=== PATIENT | male | born 1935 | race Caucasian/White ===

== ENCOUNTER 2018-11-18 01:58 | Inpatient (IN) | payer MEDICARE ==
[2018-11-18] MEDS ORDERED: Ondansetron PF 4 MG/2 ML Vial ONE (02:01)
[2018-11-18 02:31] LABS: Hemoglobin 12.4 g/dL (14.0-18.0); Mean Corpuscular HGB CONC 32.6 g/dL (32.0-36.0); Mean Corpuscular Hemoglobin 32.5 pg (27.0-31.0); Mean Corpuscular Volume 99.5 fL (78.0-98.0); Mean Platelet Volume 7.9 fL (7.4-10.4); Platelet Count 209 thou/uL (130-400); RBC Distribution Width 12.6 % (11.5-14.5)
[2018-11-18 02:52] LABS: ALT (SGPT) 20 U/L (8-55); AST (SGOT) 20 U/L (5-34); Albumin 4.3 g/dL (3.4-4.8); Alkaline Phosphatase 98 U/L (40-150); Anion Gap 19 mmol/L (10-20); BUN (Urea Nitrogen) 32 mg/dL (8.4-25.7); Bilirubin, Total 0.3 mg/dL (0.2-1.2); CK (CPK) 66 U/L (30-200); Calc. Creatinine Clearance 0 mL/min (70-130); Calcium 9.1 mg/dL (7.8-10.44); Carbon Dioxide 20 mmol/L (23-31); Chloride 107 mmol/L (98-107); Estimated GFR-MDRD 46; Globulin 2.4 g/dL (2.4-3.5); Glucose 109 mg/dL (83-110); Lipase 20 U/L (8-78); Potassium 4.5 mmol/L (3.5-5.1); Protein, Total 6.7 g/dL (5.8-8.1); Sodium 141 mmol/L (136-145)
[2018-11-18 02:54] LABS: Band 7 % (5-11); Hypochromia SLIGHT = 6-15 cells (100X) (0-5/hpf); Lymphocytes 16 % (21-51); MDiff Complete? YES; Monocytes 1 % (0-10); Neutrophil 73 % (42-75); Platelet Morphology Comment Appears Adequate; Reactive Lymphocytes 3 % (0-10)
[2018-11-18] MEDS ORDERED: Piperacillin/Tazobactam 4.5 GM VIAL ONE (03:04)
[2018-11-18] MEDS ORDERED: Ondansetron PF 4 MG/2 ML Vial IVP PRN (06:39)
[2018-11-18] MEDS ORDERED: Ondansetron ODT 4 MG TAB PO PRN (06:39)
[2018-11-18] MEDS ORDERED: Acetaminophen 325 MG TAB PO PRN (06:39)
[2018-11-18 06:42] VITALS: BMI 24.3
[2018-11-18] MEDS: Sodium Chloride 0.9% 1,000 ML IV SCH ×3 (08:15→23:50)
--- NOTE | 2018-11-18 09:32 | RAD ---
FRONTAL VIEW CHEST: COMPARISON: No prior comparison. INDICATION: Short of breath. FINDINGS: There is enlargement of the cardiac silhouette and pulmonary vasculature with bilateral interstitial prominence. Right pleural fluid is present. There are osseous degenerative changes. IMPRESSION: 1. Findings which favor fluid overload. Superimposed pneumonia not excluded. 2. Right pleural effusion. 3. Recommend followup to resolution. POS: ANNAMARIE
[2018-11-18] MEDS: Piperacillin/Tazobactam 3.375 GM in Sodium Chloride 0.9% 100 ML IVPB SCH ×4 (09:58→22:30)
[2018-11-18] MEDS ORDERED: ISOVUE-370 76%-LOCM 1 ML ONE (11:21)
[2018-11-18] MEDS ORDERED: HYDROcodone/Acetaminophen 5/325 mg Tablet PO PRN (16:40)
[2018-11-18] MEDS: Vancomycin HCl 1 GM in Premix Bag 1 BAG IVPB SCH (17:31)
--- NOTE | 2018-11-18 18:56 | HP ---
CHIEF COMPLAINT: Shortness of breath and cough for the last 3 days. HISTORY OF PRESENT ILLNESS: This is an 83-year-old man with a history of hypertension, who presented to the ER with shortness of breath and cough on expectorant for the last few days, feeling weak with nausea and vomiting. In the ER, he was treated with sepsis protocol because of high lactate and blood pressure is low. He was given IV fluid and sepsis support initiated because of pneumonia. He was a very poor historian when examined him. History was not available at the time. MEDICATION: Not available at the time of interview. PAST MEDICAL HISTORY: Not available. History of hypertension. No diabetes. ALLERGIES: HE HAS AN ALLERGY TO AZITHROMYCIN. PERSONAL HISTORY: He quit smoking so many years ago. Denied alcohol or drug use. FAMILY HISTORY: Reviewed and not pertinent to current illness REVIEW OF SYSTEMS: HEENT: He has fever and malaise. NEUROLOGIC: No headache. No nausea. No vomiting. No blurred vision. RESPIRATORY: He has cough, expectorant. Short of breath on exertion. No hemoptysis. CARDIOVASCULAR: No chest pain. No short of breath. No palpitation. GI: Nausea and vomiting. No diarrhea. No hematemesis. No melena. MUSCULOSKELETAL: No joint pain. SKIN: No rash. Review of systems negative except in the history and physical. PHYSICAL EXAMINATION: GENERAL: He is an elderly man, in the bed, not in distress. VITAL SIGNS: Pulse 79, blood pressure 105/57, respirations 20, and temperature 99.3. HEENT: Head is atraumatic and normocephalic. Pupils round and reactive. Extraocular muscles are intact. Ears, nose, and throat normal. Tongue, mucosa moist. NECK: Supple. No JVD. No thyromegaly. No lymphadenopathy. Trachea midline. CHEST: Diminished breath sounds at bases. Crackles with a few expiratory wheezing and rhonchi. CVS: S1, S2 audible. No S3 or S4. ABDOMEN: Soft. Bowel sounds audible. No organomegaly. No guarding or rigidity. EXTREMITIES: No pedal edema. No cyanosis or clubbing. 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 No focal deficit. LABORATORY DATA: D-dimer high at 5.35. WBC 12.0, hemoglobin 12.4, hematocrit 37.8, and platelets 209. Sodium 141, potassium 4.5, chloride 107, bicarbonate 20, BUN 32, creatinine 1.46, and calcium 9.1. AST 20, ALT 20, and alkaline phosphatase 98. BNP 104.3. Albumin 4.3, 2.4. Lipase 20. Lactic acid 3.0. Second set of labs and chest x-ray shows pneumonia versus fluid overload. CAT scan pending. ASSESSMENT AND PLAN: 1. Sepsis with pneumonia. Continue sepsis protocol. Blood cultures x2. Oxygen nebulizer, IV Levaquin, vancomycin, and Zosyn for broad-spectrum coverage. 2. Elevated D-dimer with acute kidney injury. CTA chest showed Multiocal Pneumonia, NO PE closely. 3. Deep vein thrombosis prophylaxis with Lovenox. Job ID: [id number] [facility]
[2018-11-19] MEDS ORDERED: Sodium Chloride 0.65% Nasal 44 ML BOT EA NARE PRN (01:49)
[2018-11-19] MEDS ORDERED: Temazepam 15 MG CAP PO SCH (02:00)
[2018-11-19] MEDS: Piperacillin/Tazobactam 3.375 GM in Sodium Chloride 0.9% 100 ML IVPB SCH ×4 (04:43→21:27)
[2018-11-19] MEDS: Vancomycin HCl 1 GM in Premix Bag 1 BAG IVPB SCH ×2 (04:43→16:57)
[2018-11-19] MEDS: Sodium Chloride 0.9% 1,000 ML IV SCH (04:47)
[2018-11-19 07:09] LABS: Anion Gap 8 mmol/L (10-20); BUN (Urea Nitrogen) 21 mg/dL (8.4-25.7); Calc. Creatinine Clearance 45 mL/min (70-130); Calcium 8.4 mg/dL (7.8-10.44); Carbon Dioxide 26 mmol/L (23-31); Chloride 111 mmol/L (98-107); Estimated GFR-MDRD 46; Glucose 106 mg/dL (83-110); Potassium 3.8 mmol/L (3.5-5.1); Sodium 141 mmol/L (136-145)
[2018-11-19 08:00] LABS: Band 19 % (5-11); Hemoglobin 10.1 g/dL (14.0-18.0); Lymphocytes 9 % (21-51); MDiff Complete? YES; Mean Corpuscular HGB CONC 32.4 g/dL (32.0-36.0); Mean Corpuscular Hemoglobin 32.8 pg (27.0-31.0); Mean Platelet Volume 7.8 fL (7.4-10.4); Monocytes 3 % (0-10); Neutrophil 67 % (42-75); Platelet Count 145 thou/uL (130-400); RBC Distribution Width 12.8 % (11.5-14.5); RBC Morphology Normal; Reactive Lymphocytes 2 % (0-10); Red Blood Cell (RBC) Count 3.08 mill/uL (4.70-6.10); White Blood Cell (WBC) Count 16.1 thou/uL (4.8-10.8)
--- NOTE | 2018-11-19 08:40 | CT ---
PRELIMINARY REPORT/[facility]/EMERGENCY AFTER HOURS PROCEDURE: EXAM: CT Angiography Chest With Contrast EXAM DATE/TIME: 11/18/2018 3:17 AM CLINICAL HISTORY: 83 years old, male; Abnormal findings; Abnormal diagnostic tests; Elevated d-dimer; Patient HX: Er 1. . . Patient and EMS report that patient had vomiting and SOB. Patient is normally on o2 at home. 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 3D rendering: MIP reconstructed images were created and reviewed. COMPARISON: No relevant prior studies available. FINDINGS: Pulmonary arteries: Evaluation of the subsegmental pulmonary arteries in the lower lobes is limited b y artifact otherwise, there is no evidence of PE. Aorta: Normal. No aortic aneurysm. No aortic dissection. Lungs: Peripheral and basilar pulmonary fibrosis. Paraseptal emphysema. Multifocal pneumonia in the r ight lower lobe, left upper lobe, and right middle lobe. Pleural space: Trace right pleural effusion. Trace right pleural effusion. Heart: Cardiomegaly. Lymph nodes: Unremarkable. No enlarged lymph nodes. Bones/joints: Diffuse heterogeneity of the bones may signify a metabolic disorder, osteopenia, or less likely neoplastic infiltration. Soft tissues: Unremarkable. IMPRESSION: 1. Peripheral and basilar pulmonary fibrosis. Paraseptal emphysema. 2. Multifocal pneumonia in the right lower lobe, left upper lobe, and right middle lobe. 3. Trace right pleural effusion. 4. Diffuse heterogeneity of the bones may signify a metabolic disorder, osteopenia, or less likely ne oplastic infiltration. Thank you for allowing us to participate in the care of your patient. Dictated and Authenticated by: Cr Mata MD 11/18/2018 4:21 AM Central Time ([place] & [place]) FINAL REPORT CTA CHEST WITH 3D VOLUME RENDERING WITH CONTRAST: FINDINGS/IMPRESSION: Final report is in agreement with the preliminary interpretation provided above. Not mentioned in th e preliminary report, there are clips at the posterior medial right hemithorax adjacent the bronchial tree which may relate to prior bronchopulmonary resection within this region. Correlate with surgic al history. No large, central pulmonary embolus. Multifocal bilateral alveolar opacities indicating multifocal atypical pneumonia possibly superimpose d upon edema given associated pleural fluid and enlarged cardiac chambers. Recommend radiographic fo llowup to resolution. Diffuse pulmonary fibrosis. Generalized heterogeneity of the osseous structures as discussed above. POS: NWK
[2018-11-19] MEDS ORDERED: Enoxaparin Sodium 40 MG/0.4 ML SYRINGE SC SCH ×2 (09:00→13:30)
--- NOTE | 2018-11-19 09:22 | ULT ---
EXAM: Right lower extremity venous duplex: Deep veins evaluated with color Doppler, spectral analysis, and compression. INDICATIONS: Right lower extremity pain and edema. FINDINGS: Deep veins interrogated include common femoral vein, femoral vein, popliteal vein, and post erior tibial vein. There is diminished compressibility and reduced flow within the right popliteal vein, compatible with partially occlusive thrombus. The additional veins show normal compression and blood flow. IMPRESSION: Partially occlusive thrombus of the right popliteal vein.
[2018-11-19] MEDS ORDERED: Sodium Chloride 0.9% 1,000 ML IV SCH (13:20)
[2018-11-19] MEDS: Sucralfate 1 GM TAB PO SCH ×2 (14:59→21:23)
[2018-11-19] MEDS ORDERED: predniSONE 20 MG TAB PO SCH ×2 (15:00→18:00)
[2018-11-19 15:33] LABS: Vancomycin, Trough 17.9 ug/mL
[2018-11-19] MEDS: Levalbuterol HCl 1.25 MG/0.5 ML NEB NEB SCH ×2 (18:15→23:08)
[2018-11-19] MEDS: Mometasone 200 MCG HFA INHALER INH SCH (18:26)
[2018-11-19] MEDS ORDERED: Mometasone Furoate 30 PUFF 220 MCG INH SCH (18:30)
[2018-11-19] MEDS ORDERED: Mometasone Furoate 120 PUFF 220 MCG INH SCH (18:30)
[2018-11-19] MEDS ORDERED: Non-Formulary Item 1 EACH (Umeclidinium Brm/Vilanterol Tr [Anoro Ellipta] 1 INH) IH SCH (21:00)
[2018-11-19] MEDS: Enoxaparin Sodium 80 MG/0.8 ML SYRINGE SC SCH (21:21)
[2018-11-19] MEDS: Famotidine 20 MG TAB PO SCH (21:23)
[2018-11-19] MEDS: Temazepam 15 MG CAP PO SCH (21:24)
[2018-11-19] MEDS: guaiFENesin ER 600 MG TAB PO SCH (21:25)
[2018-11-19] MEDS: Atorvastatin Calcium 10 MG TAB PO SCH (21:25)
[2018-11-19] MEDS: Montelukast Sodium 10 mg Tablet PO SCH (21:25)
--- NOTE | 2018-11-19 21:42 | PDOC.PN ---
- Subjective Encounter Start Date: 11/19/18 Encounter Start Time: 15:30 Patient seen and examined for Resp failure/Pneumonia. No new complaints. No overnight events - Objective Resuscitation Status - Order Detail: 11/18/18 16:40 Resuscitation Status Routine Resuscitation Status: FULL: Full Resuscitation MAR Reviewed: Yes Vital Signs & Weight: Vital Signs (12 hours) Temp Pulse Resp BP Pulse Ox 11/19/18 18:15 84 18 94 L 11/19/18 16:44 97.5 F L 96 18 177/83 H 97 11/19/18 11:49 98.2 F 92 20 143/67 H 92 L Weight Weight 186 lb I&O: 11/18/18 11/19/18 11/20/18 06:59 06:59 06:59 Intake Total 3821 1100 Output Total 1200 800 Balance 2621 300 Result Diagrams: 11/19/18 06:30 11/19/18 06:29 Radiology Reviewed by me: Yes (CT chest - B/L pneumonia) EKG Reviewed by me: Yes (Tele SR) Phys Exam - Physical Examination Pt in mild resp distress Respiratory: wheezing present Mild accessory muscle use, Bibasilar rales/rhonchi Cardiovascular: RRR, no rub no heaves/pulsations Gastrointestinal: soft, non-tender, no distention, positive bowel sounds Musculoskeletal: no edema, pulses present Neurological: non-focal, normal sensation, moves all 4 limbs Psychiatric: normal affect, A&O x 3 Skin: no rash Dx/Plan - Plan DVT proph w/lovenox IMPRESSION: Acute on chronic hypoxic Resp failure Sepsis with acute organ dysfunction due to B/L Pneumonia ? Pneumococcal. r/o Aspiration 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 Alzheimer's dementia CKD 3 Former smoker AJ on CPAP PLAN: Cont Vanc/Zosyn/Levaquin Monitor Vancomycin level Lovenox for DVT - Risk discussed AM labs Home meds restarted. 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 Review of Systems - Review of Systems Cardiovascular: negative: chest pain, palpitations, orthopnea, paroxysmal nocturnal dyspnea, edema, light headedness, other Gastrointestinal: negative: Nausea, Vomiting, Abdominal Pain, Diarrhea, Constipation, Melena, Hematochezia, Other - Medications/Allergies Allergies/Adverse Reactions: Allergies Allergy/AdvReac Type Severity Reaction Status Date / Time azithromycin [From Zithromax] Allergy Verified 11/18/18 12:31 Medications: Current Medications Acetaminophen (Tylenol) 650 mg PO Q4H PRN PRN Reason: Headache/Fever or Pain Hydrocodone Bitart/Acetaminophen ([place] 5/325) 1 tab PO Q4H PRN PRN Reason: Moderate Pain (4-6) Albuterol/Ipratropium (Duoneb) 3 ml NEB [id number] PRN PRN Reason: SOB &/or Wheezing Atorvastatin Calcium (Lipitor) 10 mg PO HS [facility] Last Admin: 11/19/18 21:25 Dose: 10 mg Bethanechol Chloride (Urecholine) 25 mg PO DAILY [facility] Diltiazem HCl (Cardizem Cd) 120 mg PO BID [facility] Last Admin: 11/19/18 21:25 Dose: 120 mg Enoxaparin Sodium (Lovenox) 80 mg SC 0900,2100 [facility] Last Admin: 11/19/18 21:21 Dose: 80 mg Famotidine (Pepcid) 20 mg PO HS [facility] Last Admin: 11/19/18 21:23 Dose: 20 mg Finasteride (Proscar) 5 mg PO DAILY [facility] Fluticasone Propionate (Flonase Nasal [place]) 0 gm NASAL DAILY [facility] Guaifenesin (Mucinex) 600 mg PO Q12HR [facility] Last Admin: 11/19/18 21:25 Dose: 600 mg Vancomycin HCl 1 gm/ Device 200 mls @ 200 mls/hr IVPB Q12H [facility] Last Admin: 11/19/18 16:57 Dose: 200 mls Piperacillin Sod/Tazobactam (Sod 3.375 gm/ Sodium Chloride) 100 mls @ 200 mls/ hr IVPB Q6H [facility] Last Admin: 11/19/18 21:27 Dose: 100 mls Levofloxacin 750 mg/ Device 150 mls @ 100 mls/hr IVPB Q24HR [facility] Last Admin: 11/19/18 04:44 Dose: 150 mls Levalbuterol HCl (Xopenex Conc) 1.25 mg NEB [id number] [facility] Last Admin: 11/19/18 18:15 Dose: 1.25 mg Memantine (Namenda) 10 mg PO BID [facility] Last Admin: 11/19/18 21:23 Dose: 10 mg Metaxalone (Skelaxin) 800 mg PO TID PRN PRN Reason: Muscle Spasm Miscellaneous Medication (Pharmacy To Dose) 1 each IVPB ONE PRN PRN Reason: Pharmacy to dose Stop: 11/29/18 13:21 Mometasone Furoate (Asmanex Hfa 200 Mcg) 2 puff INH BID-RT [facility] Last Admin: 11/19/18 18:26 Dose: 2 puff Montelukast Sodium (Singulair) 10 mg PO QPM [facility] Last Admin: 11/19/18 21:25 Dose: 10 mg Ondansetron HCl (Zofran) 4 mg IVP Q6H PRN PRN Reason: Nausea/Vomiting Ondansetron HCl (Zofran Odt) 4 mg PO Q6H PRN PRN Reason: Nausea/Vomiting Pantoprazole Sodium (Protonix) 40 mg PO BID [facility] Last Admin: 11/19/18 21:25 Dose: 40 mg Linaclotide [Linzess (] 145 Mcg) 0 each PO DAILY-AC [facility] Prednisone (Prednisone) 40 mg PO QAM[facility] Stop: 11/23/18 08:01 Saccharomyces Boulardii (Florastor) 250 mg PO DAILY [facility] Sertraline HCl (Zoloft) 25 mg PO DAILY [facility] Sodium Chloride (Flush - Normal Saline) 10 ml IVF Q12HR [facility] Last Admin: 11/19/18 09:10 Dose: Not Given Sodium Chloride (Flush - Normal Saline) 10 ml IVF PRN PRN PRN Reason: Saline Flush Sodium Chloride ([place] Nasal [place] 0.65%) 0 ml EA NARE PRN PRN PRN Reason: Nasal Dryness Sucralfate (Carafate) 1 gm PO TID [facility] Last Admin: 11/19/18 21:23 Dose: 1 gm Temazepam (Restoril) 15 mg PO HS [facility] Last Admin: 11/19/18 21:24 Dose: 15 mg
--- NOTE | 2018-11-20 00:40 | CON ---
DATE OF CONSULTATION: 11/19/2018 SERVICE: Pulmonary Medicine. REASON FOR CONSULT: PE. HISTORY OF PRESENT ILLNESS: The patient is an 83-year-old white male with past medical history significant for lung cancer. He had a squamous cell carcinoma. About 2 to 3 years ago, he underwent a thoracotomy with right lower lobe excision. He recovered very nicely from that procedure. He is in his usual state of health when he decided to drive up here from [place]. He indicates that was a big mistake. He really can not elaborate on that. He kind of confound a little bit of the stories, and is a slightly challenging historian. That being said, he indicates that he had an abrupt onset of shortness of breath on his way here. He was brought into the emergency department. He was discovered to have bilateral pneumonia, and no evidence of a pulmonary embolism. He was put on appropriate broad-spectrum antibiotic coverage. He was tucked into the ICU. He tells me that he has ever so slightly better compared to prior. He has no specific complaints. He denies any nausea or vomiting and he indicates that his appetite is okay. He is not having diarrhea or constipation. He denies hot red swollen legs, arthralgias, or any rashes. PAST MEDICAL HISTORY: 1. Squamous cell lung cancer. 2. COPD. 3. Dementia. PAST SURGICAL HISTORY: Right lower lobectomy. SOCIAL HISTORY: Negative for current alcohol, tobacco, or illicit drug use. He has remote history of smoking. SOCIAL HISTORY: He currently lives in [place]. They are visiting from out of town. ALLERGIES: ZITHROMAX. MEDICATIONS: List of his inpatient medications was reviewed. No specific updates were made at this time. REVIEW OF SYSTEMS: General, head, ears, eyes, nose, throat, cardiovascular, respiratory, GI, , musculoskeletal, neurologic, and skin is negative except as mentioned in the HPI. PHYSICAL EXAMINATION: VITAL SIGNS: Afebrile, pulse 75, respirations 19, and saturation 98% on room air. GENERAL: The patient is awake and alert, in no apparent distress. LUNGS: Decent air entry. Extensive crackling is present. There is a slightly prolonged expiratory phase. The right base has decreased air entry. HEART: Normal rate, regular. ABDOMEN: Soft, nontender, and nondistended. Bowel sounds are positive. MUSCULOSKELETAL: No cyanosis or clubbing. No pitting in the bilateral lower extremities. NEUROLOGIC: Grossly nonfocal. IMAGING DATA: CT of the chest demonstrates no evidence of a pulmonary embolism. There are bilateral pneumonia present in the right middle lobe (right lower lobe surgically absent), in the lingula. There is interstitial fullness throughout the periphery of the lung as well as some degree of possible fibrosis, trace right- sided pleural effusion is present, looks chronic. ASSESSMENT: 1. Acute on chronic hypoxic respiratory failure. 2. Healthcare-associated pneumonia. 3. Chronic obstructive pulmonary disease with acute exacerbation. 4. Dementia. 5. Deep vein thrombosis. 6. History of right lower lobe lobectomy. 7. History of squamous cell carcinoma of the lung. DISCUSSION AND PLAN: The patient is on appropriate antibiotics. We will need to continue him for a total duration of 7 days. Once he clears his inflammatory profile, we will be able to successfully transition him over to p.o. medications. Five days of steroids will be introduced. There is some shotty mediastinal lymphadenopathy present that is likely reactive. This can be re-evaluated in the outpatient setting if his functional status dictates. Pulmonary Critical Care will continue to follow along for now. 70 minutes have been devoted to this patient in various activities. I personally reviewed all imaging studies and laboratory data noted within this document. For fifty percent of this time, I was interacting with the patient at the bedside or coordinating care with the care team. For the remainder of the time I was immediately available to the patient in the hospital unit. Job ID: [id number] MTDD
[2018-11-20] MEDS: Vancomycin HCl 1 GM in Premix Bag 1 BAG IVPB SCH ×2 (03:05→15:54)
[2018-11-20] MEDS: Piperacillin/Tazobactam 3.375 GM in Sodium Chloride 0.9% 100 ML IVPB SCH ×4 (05:04→21:12)
[2018-11-20] MEDS: Levalbuterol HCl 1.25 MG/0.5 ML NEB NEB SCH ×3 (06:04→18:51)
[2018-11-20] MEDS: Mometasone 200 MCG HFA INHALER INH SCH ×2 (06:08→19:03)
[2018-11-20 06:16] LABS: ALT (SGPT) 10 U/L (8-55); AST (SGOT) 11 U/L (5-34); Albumin 3.1 g/dL (3.4-4.8); Alkaline Phosphatase 59 U/L (40-150); Anion Gap 14 mmol/L (10-20); BUN (Urea Nitrogen) 19 mg/dL (8.4-25.7); Bilirubin, Total 0.5 mg/dL (0.2-1.2); Calc. Creatinine Clearance 48 mL/min (70-130); Calcium 8.7 mg/dL (7.8-10.44); Carbon Dioxide 20 mmol/L (23-31); Chloride 108 mmol/L (98-107); Estimated GFR-MDRD 50; Globulin 2.3 g/dL (2.4-3.5); Glucose 158 mg/dL (83-110); Magnesium 1.7 mg/dL (1.6-2.6); Potassium 3.7 mmol/L (3.5-5.1); Protein, Total 5.4 g/dL (5.8-8.1); Sodium 138 mmol/L (136-145)
[2018-11-20 06:25] LABS: Hemoglobin 9.5 g/dL (14.0-18.0); Mean Corpuscular HGB CONC 33.1 g/dL (32.0-36.0); Mean Corpuscular Hemoglobin 33.4 pg (27.0-31.0); Mean Platelet Volume 8.2 fL (7.4-10.4); Platelet Count 139 thou/uL (130-400); RBC Distribution Width 12.7 % (11.5-14.5); Red Blood Cell (RBC) Count 2.84 mill/uL (4.70-6.10); White Blood Cell (WBC) Count 17.5 thou/uL (4.8-10.8)
[2018-11-20 06:28] LABS: Band 3 % (5-11); Hypochromia SLIGHT = 6-15 cells (100X) (0-5/hpf); Lymphocytes 5 % (21-51); MDiff Complete? YES; Neutrophil 92 % (42-75); Platelet Morphology Comment Appears Decreased
[2018-11-20] MEDS ORDERED: Linaclotide [Linzess] 145 MCG PO SCH (07:30)
[2018-11-20] MEDS ORDERED: predniSONE 20 MG TAB PO SCH (08:00)
[2018-11-20] MEDS: predniSONE 20 MG TAB PO SCH (08:39)
[2018-11-20] MEDS: Fluticasone Propionate Nasal Spray 16 gm Bottle NASAL SCH (08:39)
[2018-11-20] MEDS: guaiFENesin ER 600 MG TAB PO SCH ×2 (08:42→20:04)
[2018-11-20] MEDS: Finasteride 5 MG TAB PO SCH (08:42)
[2018-11-20] MEDS: Enoxaparin Sodium 80 MG/0.8 ML SYRINGE SC SCH ×2 (08:42→20:04)
[2018-11-20] MEDS: Sucralfate 1 GM TAB PO SCH ×3 (08:43→20:04)
[2018-11-20] MEDS: Saccharomyces boulardii 250 MG CAP PO SCH (08:43)
[2018-11-20] MEDS ORDERED: predniSONE 5 MG TAB PO SCH (09:00)
--- NOTE | 2018-11-20 18:17 | PDOC.PN ---
- Subjective Encounter Start Date: 11/20/18 Encounter Start Time: 14:00 Patient seen and examined for Resp failure. Feeling better. No CP. No other complaints. No overnight events - Objective Resuscitation Status - Order Detail: 11/18/18 16:40 Resuscitation Status Routine Resuscitation Status: FULL: Full Resuscitation MAR Reviewed: Yes Vital Signs & Weight: Vital Signs (12 hours) Temp Pulse Resp BP Pulse Ox 11/20/18 15:51 98.2 F 76 20 120/59 L 98 11/20/18 12:52 98.1 F 95 20 131/63 93 L 11/20/18 11:33 93 18 96 11/20/18 08:35 98.0 F 80 20 106/58 L 97 Weight Weight 187 lb 1 oz I&O: 11/19/18 11/20/18 11/21/18 06:59 06:59 06:59 Intake Total 3821 1940 Output Total 1200 2895 Balance 4621 -935 Result Diagrams: 11/20/18 05:08 11/20/18 05:08 EKG Reviewed by me: Yes (Tele SR) Phys Exam - Physical Examination Mild Resp distress Respiratory: wheezing present B/L rhonchi with bibasilar rales Cardiovascular: RRR, no rub Gastrointestinal: soft, non-tender, positive bowel sounds Musculoskeletal: no edema Neurological: moves all 4 limbs Dx/Plan - Plan DVT proph w/lovenox IMPRESSION: Acute on chronic hypoxic Resp failure Sepsis with acute organ dysfunction due to B/L Pneumonia ? Pneumococcal. Metabolic acidosis/Lactic acidosis RLE DVT - on Lovenox COPD/?Pulmonary fibrosis Alzheimer's dementia CKD 3 Former smoker AJ on CPAP Swallow dysfunction PLAN: Cont IV Atbx - Vanc/Zosyn/Levaquin Monitor Vancomycin level Cont Lovenox for DVT Cont Nebs Cont CPAP HS AM labs Review of Systems - Review of Systems Respiratory: Cough, SOB with Excertion, Sputum Cardiovascular: negative: chest pain, palpitations, orthopnea, paroxysmal nocturnal dyspnea, edema, light headedness, other Gastrointestinal: negative: Nausea, Vomiting, Abdominal Pain, Diarrhea, Constipation, Melena, Hematochezia, Other - Medications/Allergies Allergies/Adverse Reactions: Allergies Allergy/AdvReac Type Severity Reaction Status Date / Time azithromycin [From Zithromax] Allergy Verified 11/18/18 12:31 Medications: Current Medications Acetaminophen (Tylenol) 650 mg PO Q4H PRN PRN Reason: Headache/Fever or Pain Hydrocodone Bitart/Acetaminophen ([place] 5/325) 1 tab PO Q4H PRN PRN Reason: Moderate Pain (4-6) Albuterol/Ipratropium (Duoneb) 3 ml NEB [id number] PRN PRN Reason: SOB &/or Wheezing Atorvastatin Calcium (Lipitor) 10 mg PO HS [facility] Last Admin: 11/19/18 21:25 Dose: 10 mg Bethanechol Chloride (Urecholine) 25 mg PO DAILY [facility] Last Admin: 11/20/18 08:41 Dose: 25 mg Diltiazem HCl (Cardizem Cd) 120 mg PO BID [facility] Last Admin: 11/20/18 08:41 Dose: 120 mg Enoxaparin Sodium (Lovenox) 80 mg SC 0900,2100 [facility] Last Admin: 11/20/18 08:42 Dose: 80 mg Famotidine (Pepcid) 20 mg PO HS [facility] Last Admin: 11/19/18 21:23 Dose: 20 mg Finasteride (Proscar) 5 mg PO DAILY [facility] Last Admin: 11/20/18 08:42 Dose: 5 mg Fluticasone Propionate (Flonase Nasal [place]) 0 gm NASAL DAILY [facility] Last Admin: 11/20/18 08:39 Dose: 1 spr Guaifenesin (Mucinex) 600 mg PO Q12HR [facility] Last Admin: 11/20/18 08:42 Dose: 600 mg Vancomycin HCl 1 gm/ Device 200 mls @ 200 mls/hr IVPB Q12H [facility] Last Admin: 11/20/18 15:54 Dose: 200 mls Piperacillin Sod/Tazobactam (Sod 3.375 gm/ Sodium Chloride) 100 mls @ 200 mls/ hr IVPB Q6H [facility] Last Admin: 11/20/18 17:10 Dose: 100 mls Levofloxacin 750 mg/ Device 150 mls @ 100 mls/hr IVPB Q24HR [facility] Last Admin: 11/20/18 05:46 Dose: 150 mls Levalbuterol HCl (Xopenex Conc) 1.25 mg NEB [id number] [facility] Last Admin: 11/20/18 11:33 Dose: 1.25 mg Memantine (Namenda) 10 mg PO BID [facility] Last Admin: 11/20/18 08:42 Dose: 10 mg Metaxalone (Skelaxin) 800 mg PO TID PRN PRN Reason: Muscle Spasm Miscellaneous Medication (Pharmacy To Dose) 1 each IVPB ONE PRN PRN Reason: Pharmacy to dose Stop: 11/29/18 13:21 Mometasone Furoate (Asmanex Hfa 200 Mcg) 2 puff INH BID-RT [facility] Last Admin: 11/20/18 06:08 Dose: 2 puff Montelukast Sodium (Singulair) 10 mg PO QPM [facility] Last Admin: 11/19/18 21:25 Dose: 10 mg Ondansetron HCl (Zofran) 4 mg IVP Q6H PRN PRN Reason: Nausea/Vomiting Ondansetron HCl (Zofran Odt) 4 mg PO Q6H PRN PRN Reason: Nausea/Vomiting Pantoprazole Sodium (Protonix) 40 mg PO BID [facility] Last Admin: 11/20/18 08:43 Dose: 40 mg Prednisone (Prednisone) 40 mg PO QAM-WM [facility] Stop: 11/23/18 08:01 Last Admin: 11/20/18 08:39 Dose: 40 mg Saccharomyces Boulardii (Florastor) 250 mg PO DAILY [facility] Last Admin: 11/20/18 08:43 Dose: 250 mg Sertraline HCl (Zoloft) 25 mg PO DAILY [facility] Last Admin: 11/20/18 08:43 Dose: 25 mg Sodium Chloride (Flush - Normal Saline) 10 ml IVF Q12HR [facility] Last Admin: 11/20/18 08:43 Dose: 10 ml Sodium Chloride (Flush - Normal Saline) 10 ml IVF PRN PRN PRN Reason: Saline Flush Sodium Chloride ([place] Nasal [place] 0.65%) 0 ml EA NARE PRN PRN PRN Reason: Nasal Dryness Sucralfate (Carafate) 1 gm PO TID [facility] Last Admin: 11/20/18 15:55 Dose: 1 gm Temazepam (Restoril) 15 mg PO HS [facility] Last Admin: 11/19/18 21:24 Dose: 15 mg
[2018-11-20] MEDS: Atorvastatin Calcium 10 MG TAB PO SCH (20:04)
[2018-11-20] MEDS: Montelukast Sodium 10 mg Tablet PO SCH (20:04)
[2018-11-20] MEDS: Famotidine 20 MG TAB PO SCH (20:04)
[2018-11-20] MEDS: Temazepam 15 MG CAP PO SCH (20:04)
[2018-11-21] MEDS: Levalbuterol HCl 1.25 MG/0.5 ML NEB NEB SCH ×4 (00:21→19:15)
[2018-11-21 00:48] LABS: Anion Gap 16 mmol/L (10-20); Carbon Dioxide 21 mmol/L (23-31); Chloride 109 mmol/L (98-107); Magnesium 1.7 mg/dL (1.6-2.6); Potassium 3.6 mmol/L (3.5-5.1); Sodium 142 mmol/L (136-145)
[2018-11-21] MEDS: Vancomycin HCl 1 GM in Premix Bag 1 BAG IVPB SCH (03:26)
[2018-11-21] MEDS ORDERED: Temazepam 15 MG CAP PO SCH (04:15)
[2018-11-21] MEDS: Piperacillin/Tazobactam 3.375 GM in Sodium Chloride 0.9% 100 ML IVPB SCH ×3 (06:21→19:30)
[2018-11-21 06:25] LABS: Anion Gap 12 mmol/L (10-20); BUN (Urea Nitrogen) 19 mg/dL (8.4-25.7); Calc. Creatinine Clearance 49 mL/min (70-130); Calcium 8.5 mg/dL (7.8-10.44); Carbon Dioxide 22 mmol/L (23-31); Chloride 107 mmol/L (98-107); Estimated GFR-MDRD 51; Glucose 123 mg/dL (83-110); Magnesium 1.6 mg/dL (1.6-2.6); Potassium 3.3 mmol/L (3.5-5.1); Sodium 138 mmol/L (136-145)
[2018-11-21 06:32] LABS: Mean Corpuscular Hemoglobin 33.5 pg (27.0-31.0); Mean Platelet Volume 7.6 fL (7.4-10.4); Platelet Count 143 thou/uL (130-400); RBC Distribution Width 12.7 % (11.5-14.5); Red Blood Cell (RBC) Count 2.69 mill/uL (4.70-6.10); White Blood Cell (WBC) Count 18.9 thou/uL (4.8-10.8)
[2018-11-21 06:44] LABS: Band 7 % (5-11); Lymphocytes 10 % (21-51); MDiff Complete? YES; Monocytes 1 % (0-10); Neutrophil 82 % (42-75); Platelet Morphology Comment Appears Adequate
[2018-11-21] MEDS ORDERED: Magnesium 2 GM/50 ML 2 GM in Premix Bag 1 BAG IVPB SCH (07:15)
[2018-11-21] MEDS ORDERED: Magnesium Sulfate 2 GM in Sodium Chloride 0.9% 100 ML IVPB SCH (07:15)
[2018-11-21] MEDS: Mometasone 200 MCG HFA INHALER INH SCH ×2 (07:41→19:17)
[2018-11-21] MEDS: Potassium Chloride 10 MEQ TAB PO SCH ×3 (09:40→19:29)
[2018-11-21] MEDS: Sucralfate 1 GM TAB PO SCH ×3 (09:41→19:57)
[2018-11-21] MEDS: predniSONE 20 MG TAB PO SCH (09:41)
[2018-11-21] MEDS: guaiFENesin ER 600 MG TAB PO SCH ×2 (09:41→19:56)
[2018-11-21] MEDS: Enoxaparin Sodium 80 MG/0.8 ML SYRINGE SC SCH (09:42)
[2018-11-21] MEDS: Fluticasone Propionate Nasal Spray 16 gm Bottle NASAL SCH (09:44)
--- NOTE | 2018-11-21 12:16 | PRG ---
DATE OF SERVICE: 11/21/2018 SERVICE: Pulmonary Medicine. INTERVAL HISTORY: The patient is doing really great from respiratory standpoint. Denies any current chest pain, fevers, chills, shortness of breath, nausea, or vomiting. He is currently using his CPAP and has no complaints. Otherwise, he is returning to his usual state of health. PHYSICAL EXAMINATION: VITAL SIGNS: Afebrile, pulse 86, blood pressure 124/67, respirations 24, and saturation 91% on 4 L nasal cannula. GENERAL: The patient is awake and alert, in no apparent distress. LUNGS: Decent air entry with dependent crackles present. No prolonged expiratory phase or wheezing is appreciated. HEART: Normal rate and regular. ABDOMEN: Soft, nontender, and nondistended. Bowel sounds are positive. MUSCULOSKELETAL: No cyanosis or clubbing. There is 1+ pitting in bilateral lower extremities. NEUROLOGIC: Grossly nonfocal. LABORATORY DATA: WBC 18.9, hemoglobin 9.0, platelets 143,000. Neutrophil count is 82% on top of 7% bands. D-dimer 5.32. Potassium 3.3. Basic metabolic profile is otherwise stable and unremarkable. Magnesium is 1.6. Vancomycin trough is 17.9. Blood cultures x2 remain negative. ASSESSMENT: 1. Acute on chronic hypoxic respiratory failure. 2. Healthcare-associated pneumonia. 3. History of right lower lobectomy. 4. History of squamous cell carcinoma of lung. 5. Obstructive sleep apnea. DISCUSSION AND PLAN: I will replace the potassium and magnesium. We will initiate a couple of small doses of Lasix. We will convert the patient over to p.o. Eliquis, which will need to be taken for the next 3 months for the small DVT. He will need to stay in the hospital until the inflammatory profile improves. Once the white blood cell count comes down, we will be able to convert him over to p.o. medications, and consider him for discharge from the hospital. Job ID: [id number] [facility]
[2018-11-21] MEDS ORDERED: Furosemide 40 MG/4 ML VIAL SLOW IVP SCH (12:30)
[2018-11-21] MEDS ORDERED: Potassium Chloride 20 MEQ TAB PO SCH (12:30)
--- NOTE | 2018-11-21 13:00 | PDOC.PN ---
- Subjective Encounter Start Date: 11/21/18 Encounter Start Time: 11:00 Patient seen and examined for Resp failure/Pneumonia. SOB +. No new complaints. Overnight events noted - Objective Resuscitation Status - Order Detail: 11/18/18 16:40 Resuscitation Status Routine Resuscitation Status: FULL: Full Resuscitation MAR Reviewed: Yes Vital Signs & Weight: Vital Signs (12 hours) Temp Pulse Pulse Resp BP BP BP 11/21/18 12:53 82 20 11/21/18 09:40 86 124/67 11/21/18 09:38 84 124/67 11/21/18 07:47 80 24 H 11/21/18 07:41 80 24 H 11/21/18 04:00 98.1 F 74 19 122/72 11/21/18 02:21 Pulse Ox Pulse Ox Pulse Ox Pulse Ox 11/21/18 12:53 90 L 11/21/18 09:40 11/21/18 09:38 87 L 80 L 89 L 11/21/18 07:47 91 L 11/21/18 07:41 91 L 11/21/18 04:00 97 11/21/18 02:21 96 Weight Weight 188 lb 4 oz I&O: 11/20/18 11/21/18 11/22/18 06:59 06:59 06:59 Intake Total 1940 3020 Output Total 2895 1730 Balance -955 1290 Result Diagrams: 11/21/18 05:54 11/21/18 05:54 EKG Reviewed by me: Yes (Tele SR) Phys Exam - Physical Examination Constitutional: NAD Respiratory: no wheezing, wheezing present B/L rhonchi with bibasilar rales Cardiovascular: RRR, no rub Gastrointestinal: soft, non-tender, positive bowel sounds Musculoskeletal: no edema Neurological: moves all 4 limbs Dx/Plan - Plan IMPRESSION: Acute on chronic hypoxic Resp failure Sepsis with acute organ dysfunction due to B/L Pneumonia ? Pneumococcal. 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 Alzheimer's dementia CKD 3 Former smoker AJ on CPAP Swallow dysfunction Hypokalemia/Hypomagnesemia PLAN: Cont IV Atbx - Vanc/Zosyn/Levaquin Monitor Vancomycin level Cont Eliquis for DVT Cont Nebs/CPAP HS AM labs Replace Electrolytes Review of Systems - Review of Systems Respiratory: Cough, Dry, SOB with Excertion Cardiovascular: negative: chest pain, palpitations, orthopnea, paroxysmal nocturnal dyspnea, edema, light headedness, other Gastrointestinal: negative: Nausea, Vomiting, Abdominal Pain, Diarrhea, Constipation, Melena, Hematochezia, Other - Medications/Allergies Allergies/Adverse Reactions: Allergies Allergy/AdvReac Type Severity Reaction Status Date / Time azithromycin [From Zithromax] Allergy Verified 11/18/18 12:31 Medications: Current Medications Acetaminophen (Tylenol) 650 mg PO Q4H PRN PRN Reason: Headache/Fever or Pain Hydrocodone Bitart/Acetaminophen ([place] 5/325) 1 tab PO Q4H PRN PRN Reason: Moderate Pain (4-6) Albuterol/Ipratropium (Duoneb) 3 ml NEB [id number] PRN PRN Reason: SOB &/or Wheezing Apixaban (Eliquis) 5 mg PO BID [facility] Atorvastatin Calcium (Lipitor) 10 mg PO HS [facility] Last Admin: 11/20/18 20:04 Dose: 10 mg Bethanechol Chloride (Urecholine) 25 mg PO DAILY [facility] Last Admin: 11/20/18 08:41 Dose: 25 mg Diltiazem HCl (Cardizem Cd) 120 mg PO BID [facility] Last Admin: 11/21/18 09:40 Dose: 120 mg Famotidine (Pepcid) 20 mg PO HS [facility] Last Admin: 11/20/18 20:04 Dose: 20 mg Finasteride (Proscar) 5 mg PO DAILY [facility] Last Admin: 11/20/18 08:42 Dose: 5 mg Fluticasone Propionate (Flonase Nasal [place]) 0 gm NASAL DAILY [facility] Last Admin: 11/21/18 09:44 Dose: 1 spr Furosemide (Lasix) 40 mg SLOW IVP NOW [facility] Stop: 11/21/18 14:30 Furosemide (Lasix) 40 mg SLOW IVP DAILY [facility] Guaifenesin (Mucinex) 600 mg PO Q12HR [facility] Last Admin: 11/21/18 09:41 Dose: 600 mg Piperacillin Sod/Tazobactam (Sod 3.375 gm/ Sodium Chloride) 100 mls @ 200 mls/ hr IVPB Q6HR [facility] Last Admin: 11/21/18 06:21 Dose: 100 mls Levofloxacin 750 mg/ Device 150 mls @ 100 mls/hr IVPB Q24HR [facility] Last Admin: 11/21/18 04:49 Dose: 150 mls Levalbuterol HCl (Xopenex Conc) 1.25 mg NEB [id number] [facility] Last Admin: 11/21/18 12:53 Dose: 1.25 mg Memantine (Namenda) 10 mg PO BID [facility] Last Admin: 11/21/18 09:41 Dose: 10 mg Metaxalone (Skelaxin) 800 mg PO TID PRN PRN Reason: Muscle Spasm Miscellaneous Medication (Pharmacy To Dose) 1 each IVPB ONE PRN PRN Reason: Pharmacy to dose Stop: 11/29/18 13:21 Mometasone Furoate (Asmanex Hfa 200 Mcg) 2 puff INH BID-RT [facility] Last Admin: 11/21/18 07:41 Dose: 2 puff Montelukast Sodium (Singulair) 10 mg PO QPM [facility] Last Admin: 11/20/18 20:04 Dose: 10 mg Ondansetron HCl (Zofran) 4 mg IVP Q6H PRN PRN Reason: Nausea/Vomiting Ondansetron HCl (Zofran Odt) 4 mg PO Q6H PRN PRN Reason: Nausea/Vomiting Pantoprazole Sodium (Protonix) 40 mg PO BID [facility] Last Admin: 11/21/18 09:41 Dose: 40 mg Potassium Chloride (Klor-Con 10) 10 meq PO TID[facility] Last Admin: 11/21/18 09:40 Dose: 10 meq Potassium Chloride (K-Dur) 40 meq PO NOW [facility] Stop: 11/21/18 14:30 Prednisone (Prednisone) 40 mg PO QAM-[facility] Stop: 11/23/18 08:01 Last Admin: 11/21/18 09:41 Dose: 40 mg Saccharomyces Boulardii (Florastor) 250 mg PO DAILY [facility] Last Admin: 11/20/18 08:43 Dose: 250 mg Sertraline HCl (Zoloft) 25 mg PO DAILY [facility] Last Admin: 11/21/18 09:42 Dose: 25 mg Sodium Chloride (Flush - Normal Saline) 10 ml IVF Q12HR [facility] Last Admin: 11/21/18 09:45 Dose: 10 ml Sodium Chloride (Flush - Normal Saline) 10 ml IVF PRN PRN PRN Reason: Saline Flush Sodium Chloride ([place] Nasal [place] 0.65%) 0 ml EA NARE PRN PRN PRN Reason: Nasal Dryness Sucralfate (Carafate) 1 gm PO TID [facility] Last Admin: 11/21/18 09:41 Dose: 1 gm Temazepam (Restoril) 15 mg PO HS [facility] Last Admin: 11/20/18 20:04 Dose: 15 mg
[2018-11-21] MEDS: Finasteride 5 MG TAB PO SCH (14:51)
[2018-11-21] MEDS: Saccharomyces boulardii 250 MG CAP PO SCH (14:51)
--- NOTE | 2018-11-21 19:53 | CON ---
DATE OF CONSULTATION: 11/21/2018 REASON FOR CONSULTATION: Atrial fibrillation. HISTORY OF PRESENT ILLNESS: Mr. John is a pleasant 83-year-old gentleman, who recently was visiting from [place]. He developed nausea and vomiting. He was diagnosed with bilateral pneumonia. He does have a previous history of underlying atrial fibrillation, status post ablation. He has not been on anticoagulation therapy in the past. During this hospitalization, he was also diagnosed within the first 24 hours of a DVT, which may have been related to a recent car trip. PAST MEDICAL HISTORY: As above including lobectomy, squamous cell lung cancer, COPD, and dementia. SOCIAL HISTORY: No current tobacco or alcohol use. ALLERGIES: ZITHROMAX. REVIEW OF SYSTEMS: A 10-point review of systems is reviewed and otherwise negative. PHYSICAL EXAMINATION: GENERAL: Patient is a pleasant male, who is in no acute distress. The patient appears their stated age. VITAL SIGNS: Blood pressure 122/74, . NEUROLOGIC: The patient is alert and oriented x3 with no focal neurologic deficits. HEENT: Sclerae without icterus. Mouth has moist mucous membranes with normal pallor. NECK: No JVD. Carotid upstroke brisk. No bruits bilaterally. LUNGS: Clear to auscultation with unlabored respirations. BACK: No scoliosis or kyphosis. CARDIAC: Irregularly irregular. ABDOMEN: Soft, nontender, nondistended. No peritoneal signs present. No hepatosplenomegaly. No abnormal striae. EXTREMITIES: 2+ femoral and 2+ dorsalis pedis pulses. No cyanosis, clubbing, or edema. SKIN: No gross abnormalities. PERTINENT LABORATORY DATA: Hemoglobin 9.0, creatinine 1.34, GFR 51, potassium 3.3, and albumin 3.1. BNP of 104. IMPRESSION: 1. Atrial fibrillation. 2. Bilateral pneumonia. RECOMMENDATIONS: Mr. John appears to be rate controlled on Cardizem 120 mg b.i.d. We will continue. I also discussed the importance of Eliquis based on his previous history of atrial fibrillation, now new onset deep venous thrombosis. He agrees. He has been placed on Eliquis appropriately. We would recommend echo with Doppler. If overall LVEF appears normal, we would have no further recommendations and can likely discharge to [facility] and transfer to Medical. Job ID: [id number]
[2018-11-21] MEDS: Atorvastatin Calcium 10 MG TAB PO SCH (19:56)
[2018-11-21] MEDS: Montelukast Sodium 10 mg Tablet PO SCH (19:56)
[2018-11-21] MEDS: Famotidine 20 MG TAB PO SCH (19:56)
[2018-11-21] MEDS: Apixaban 5 MG TAB PO SCH (19:56)
[2018-11-21] MEDS: Temazepam 15 MG CAP PO SCH (19:57)
[2018-11-21] MEDS ORDERED: Temazepam 15 MG CAP PO PRN (23:55)
[2018-11-22] MEDS ORDERED: diphenhydrAMINE 25 MG CAP PO PRN
[2018-11-22] MEDS: Piperacillin/Tazobactam 3.375 GM in Sodium Chloride 0.9% 100 ML IVPB SCH ×5 (00:14→23:43)
[2018-11-22] MEDS: Levalbuterol HCl 1.25 MG/0.5 ML NEB NEB SCH ×4 (00:22→18:43)
[2018-11-22 06:38] LABS: Hemoglobin 10.2 g/dL (14.0-18.0); Mean Corpuscular HGB CONC 30.4 g/dL (32.0-36.0); Mean Corpuscular Hemoglobin 30.8 pg (27.0-31.0); Mean Platelet Volume 7.9 fL (7.4-10.4); Platelet Count 192 thou/uL (130-400); RBC Distribution Width 12.7 % (11.5-14.5); Red Blood Cell (RBC) Count 3.31 mill/uL (4.70-6.10); White Blood Cell (WBC) Count 17.4 thou/uL (4.8-10.8)
[2018-11-22] MEDS: Mometasone 200 MCG HFA INHALER INH SCH ×2 (06:45→19:17)
[2018-11-22 06:56] LABS: Anion Gap 13 mmol/L (10-20); BUN (Urea Nitrogen) 22 mg/dL (8.4-25.7); Calc. Creatinine Clearance 48 mL/min (70-130); Carbon Dioxide 24 mmol/L (23-31); Chloride 108 mmol/L (98-107); Estimated GFR-MDRD 49; Glucose 99 mg/dL (83-110); Magnesium 1.9 mg/dL (1.6-2.6); Potassium 3.3 mmol/L (3.5-5.1); Sodium 142 mmol/L (136-145)
--- NOTE | 2018-11-22 06:57 | PDOC.CTH ---
Cardiology Progress Note - Subjective Doing well from CV standpoint. - Objective Vital Signs Temp Pulse Resp BP Pulse Ox 11/22/18 04:00 97.9 F 80 23 H 163/53 H 91 L 11/22/18 00:22 81 20 93 L 11/21/18 19:15 85 20 92 L 11/21/18 19:05 99.1 F 86 16 134/72 92 L Weight 188 lb 4 oz 11/20/18 11/21/18 11/22/18 06:59 06:59 06:59 Intake Total 1940 3020 920 Output Total 2895 1730 2625 Balance -955 1290 -1705 - Physical Examination General/Neuro: alert & oriented x3, NAD Neck: no JVD present Lungs: CTA, unlabored respirations Heart: other: (irr) Abdomen: NT/ND, soft Extremities: + femoral B - Telemetry Telemetry Rhythm: afib - Labs Result Diagrams: 11/22/18 06:01 11/22/18 06:01 Troponin/CKMB Troponin I Less than 0.010 ng/mL (< 0.028) 11/18/18 02:12 - Assessment/Plan afib pneumonia Pt currently rate controlled on PO CCB On Abx No other recommendations. Ok to dc tele if going to stay further.
[2018-11-22 07:14] LABS: Band 2 % (5-11); Lymphocytes 7 % (21-51); MDiff Complete? YES; Monocytes 7 % (0-10); Neutrophil 84 % (42-75); Polychromasia SLIGHT = 2-3 cells (100X) (0-2/hpf)
[2018-11-22] MEDS ORDERED: Potassium Chloride 20 MEQ TAB PO SCH (09:30)
[2018-11-22] MEDS ORDERED: Magnesium Sulfate 2 GM in Sodium Chloride 0.9% 100 ML IVPB SCH (09:30)
[2018-11-22] MEDS ORDERED: Magnesium 2 GM/50 ML 2 GM in Premix Bag 1 BAG IVPB SCH (09:45)
[2018-11-22] MEDS: guaiFENesin ER 600 MG TAB PO SCH ×2 (10:09→20:08)
[2018-11-22] MEDS: Apixaban 5 MG TAB PO SCH ×2 (10:09→20:07)
[2018-11-22] MEDS: Potassium Chloride 10 MEQ TAB PO SCH ×3 (10:09→18:17)
[2018-11-22] MEDS: Saccharomyces boulardii 250 MG CAP PO SCH (10:09)
[2018-11-22] MEDS: predniSONE 20 MG TAB PO SCH (10:10)
[2018-11-22] MEDS: Fluticasone Propionate Nasal Spray 16 gm Bottle NASAL SCH (10:13)
[2018-11-22] MEDS: Finasteride 5 MG TAB PO SCH (10:13)
[2018-11-22] MEDS: Sucralfate 1 GM TAB PO SCH ×3 (10:14→20:08)
[2018-11-22] MEDS: Furosemide 40 MG/4 ML VIAL SLOW IVP SCH (10:14)
[2018-11-22] MEDS ORDERED: Acetaminophen 325 MG TAB PO PRN (10:50)
--- NOTE | 2018-11-22 16:55 | PDOC.PN ---
- Subjective Encounter Start Date: 11/22/18 Encounter Start Time: 11:00 - Objective Resuscitation Status - Order Detail: 11/18/18 16:40 Resuscitation Status Routine Resuscitation Status: FULL: Full Resuscitation MAR Reviewed: Yes Vital Signs & Weight: Vital Signs (12 hours) Pulse Pulse Pulse Resp BP BP BP 11/22/18 13:28 81 14 11/22/18 10:10 80 149/83 H 11/22/18 09:07 110 H 111 H 134/77 193/90 H 11/22/18 06:45 109 H 20 Pulse Ox Pulse Ox 11/22/18 13:28 11/22/18 10:10 11/22/18 09:07 89 L 83 L 11/22/18 06:45 Weight Weight 188 lb 4 oz I&O: 11/21/18 11/22/18 11/23/18 06:59 06:59 06:59 Intake Total 3020 920 Output Total 1730 2625 Balance 1290 -1705 Result Diagrams: 11/22/18 06:01 11/22/18 06:01 EKG Reviewed by me: Yes (Tele SR) Phys Exam - Physical Examination Pt in mild resp distress. on CPAP Respiratory: wheezing present Bibasilar rales/rhonchi Cardiovascular: RRR, no rub Gastrointestinal: soft, non-tender, positive bowel sounds Musculoskeletal: no edema Neurological: non-focal, moves all 4 limbs Psychiatric: A&O x 3 Dx/Plan - Plan IMPRESSION: Acute on chronic hypoxic Resp failure Sepsis with acute organ dysfunction due to B/L Pneumonia ? Pneumococcal. 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 Alzheimer's dementia CKD 3 Former smoker AJ on CPAP Swallow dysfunction Hypokalemia/Hypomagnesemia Epistaxis/Hemoptysis PLAN: Cont IV Vanc/Zosyn/Levaquin Cont Eliquis for DVT/Afib Cont Nebs/CPAP HS Replace Electrolytes AM labs Review of Systems - Review of Systems Respiratory: Cough, Dry, Hemoptysis (mild epistaxis ), SOB with Excertion Cardiovascular: negative: chest pain, palpitations, orthopnea, paroxysmal nocturnal dyspnea, edema, light headedness, other Gastrointestinal: negative: Nausea, Vomiting, Abdominal Pain, Diarrhea, Constipation, Melena, Hematochezia, Other - Medications/Allergies Allergies/Adverse Reactions: Allergies Allergy/AdvReac Type Severity Reaction Status Date / Time azithromycin [From Zithromax] Allergy Verified 11/18/18 12:31 Medications: Current Medications Acetaminophen (Tylenol) 650 mg PO Q4H PRN PRN Reason: Headache/Fever or Pain Last Admin: 11/22/18 10:52 Dose: 650 mg Hydrocodone Bitart/Acetaminophen ([place] 5/325) 1 tab PO Q4H PRN PRN Reason: Moderate Pain (4-6) Albuterol/Ipratropium (Duoneb) 3 ml NEB [id number] PRN PRN Reason: SOB &/or Wheezing Last Admin: 11/22/18 13:28 Dose: 3 ml Apixaban (Eliquis) 5 mg PO BID [facility] Last Admin: 11/22/18 10:09 Dose: 5 mg Atorvastatin Calcium (Lipitor) 10 mg PO HS [facility] Last Admin: 11/21/18 19:56 Dose: 10 mg Bethanechol Chloride (Urecholine) 25 mg PO DAILY [facility] Last Admin: 11/22/18 10:09 Dose: 25 mg Diltiazem HCl (Cardizem Cd) 120 mg PO BID [facility] Last Admin: 11/22/18 10:10 Dose: 120 mg Famotidine (Pepcid) 20 mg PO HS [facility] Last Admin: 11/21/18 19:56 Dose: 20 mg Finasteride (Proscar) 5 mg PO DAILY [facility] Last Admin: 11/22/18 10:13 Dose: 5 mg Fluticasone Propionate (Flonase Nasal [place]) 0 gm NASAL DAILY [facility] Last Admin: 11/22/18 10:13 Dose: 1 spr Furosemide (Lasix) 40 mg SLOW IVP DAILY [facility] Last Admin: 11/22/18 10:14 Dose: 40 mg Guaifenesin (Mucinex) 600 mg PO Q12HR [facility] Last Admin: 11/22/18 10:09 Dose: 600 mg Piperacillin Sod/Tazobactam (Sod 3.375 gm/ Sodium Chloride) 100 mls @ 200 mls/ hr IVPB Q6HR [facility] Last Admin: 11/22/18 15:34 Dose: 100 mls Levofloxacin 750 mg/ Device 150 mls @ 100 mls/hr IVPB Q24HR [facility] Last Admin: 11/22/18 04:08 Dose: 150 mls Levalbuterol HCl (Xopenex Conc) 1.25 mg NEB [id number] [facility] Last Admin: 11/22/18 13:55 Dose: Not Given Memantine (Namenda) 10 mg PO BID [facility] Last Admin: 11/22/18 10:09 Dose: 10 mg Metaxalone (Skelaxin) 800 mg PO TID PRN PRN Reason: Muscle Spasm Mometasone Furoate (Asmanex Hfa 200 Mcg) 2 puff INH BID-RT [facility] Last Admin: 11/22/18 06:45 Dose: 2 puff Montelukast Sodium (Singulair) 10 mg PO QPM [facility] Last Admin: 11/21/18 19:56 Dose: 10 mg Ondansetron HCl (Zofran) 4 mg IVP Q6H PRN PRN Reason: Nausea/Vomiting Ondansetron HCl (Zofran Odt) 4 mg PO Q6H PRN PRN Reason: Nausea/Vomiting Pantoprazole Sodium (Protonix) 40 mg PO BID [facility] Last Admin: 11/22/18 10:09 Dose: 40 mg Potassium Chloride (Klor-Con 10) 10 meq PO TID-[facility] Last Admin: 11/22/18 15:34 Dose: 10 meq Prednisone (Prednisone) 40 mg PO QAM-[facility] Stop: 11/23/18 08:01 Last Admin: 11/22/18 10:10 Dose: 40 mg Saccharomyces Boulardii (Florastor) 250 mg PO DAILY [facility] Last Admin: 11/22/18 10:09 Dose: 250 mg Sertraline HCl (Zoloft) 25 mg PO DAILY [facility] Last Admin: 11/22/18 10:09 Dose: 25 mg Sodium Chloride (Flush - Normal Saline) 10 ml IVF Q12HR [facility] Last Admin: 11/22/18 10:14 Dose: 10 ml Sodium Chloride (Flush - Normal Saline) 10 ml IVF PRN PRN PRN Reason: Saline Flush Sodium Chloride ([place] Nasal [place] 0.65%) 0 ml EA NARE PRN PRN PRN Reason: Nasal Dryness Sucralfate (Carafate) 1 gm PO TID [facility] Last Admin: 11/22/18 15:35 Dose: 1 gm Temazepam (Restoril) 30 mg PO HSPRN PRN PRN Reason: Insomnia
[2018-11-22] MEDS: Atorvastatin Calcium 10 MG TAB PO SCH (20:07)
[2018-11-22] MEDS: Famotidine 20 MG TAB PO SCH (20:07)
[2018-11-22] MEDS: Montelukast Sodium 10 mg Tablet PO SCH (20:08)
[2018-11-23] MEDS: Levalbuterol HCl 1.25 MG/0.5 ML NEB NEB SCH ×4 (00:14→18:39)
[2018-11-23] MEDS: Piperacillin/Tazobactam 3.375 GM in Sodium Chloride 0.9% 100 ML IVPB SCH ×3 (04:58→17:43)
[2018-11-23 05:47] LABS: Anion Gap 16 mmol/L (10-20); BUN (Urea Nitrogen) 29 mg/dL (8.4-25.7); Calc. Creatinine Clearance 47 mL/min (70-130); Calcium 8.9 mg/dL (7.8-10.44); Carbon Dioxide 23 mmol/L (23-31); Chloride 109 mmol/L (98-107); Estimated GFR-MDRD 47; Glucose 88 mg/dL (83-110); Potassium 3.5 mmol/L (3.5-5.1); Sodium 144 mmol/L (136-145)
[2018-11-23 06:15] LABS: Band 1 % (5-11); Hemoglobin 10.1 g/dL (14.0-18.0); Lymphocytes 13 % (21-51); MDiff Complete? YES; Mean Corpuscular HGB CONC 32.5 g/dL (32.0-36.0); Mean Corpuscular Hemoglobin 32.9 pg (27.0-31.0); Mean Platelet Volume 7.9 fL (7.4-10.4); Monocytes 2 % (0-10); Neutrophil 84 % (42-75); Platelet Count 194 thou/uL (130-400); RBC Distribution Width 12.9 % (11.5-14.5); Red Blood Cell (RBC) Count 3.08 mill/uL (4.70-6.10); White Blood Cell (WBC) Count 16.4 thou/uL (4.8-10.8)
--- NOTE | 2018-11-23 07:08 | EKG ---
Test Reason : Blood Pressure : / mmHG Vent. Rate : 075 BPM Atrial Rate : 105 BPM P-R Int : 000 ms QRS Dur : 084 ms QT Int : 412 ms P-R-T Axes : 000 -38 093 degrees QTc Int : 460 ms Atrial fibrillation with premature ventricular or aberrantly conducted complexes Left axis deviation Lateral infarct , age undetermined Abnormal ECG No previous ECGs available Confirmed by LORELEI JACKSON ([id number]) on 11/23/2018 7:08:36 AM Referred By: JUAN ANTONIO Confirmed By:LORELEI JACKSON
[2018-11-23] MEDS ORDERED: Sodium Chloride For Inhalation 0.9% 3 ML NEB ONE ×2 (07:17→18:33)
[2018-11-23] MEDS: Mometasone 200 MCG HFA INHALER INH SCH ×2 (07:41→18:45)
--- NOTE | 2018-11-23 07:48 | PDOC.CTH ---
Cardiology Progress Note - Subjective No changes overnight. - Objective Vital Signs Temp Pulse Resp BP Pulse Ox 11/23/18 07:41 83 32 H 91 L 11/23/18 07:22 91 L 11/23/18 07:20 83 32 H 91 L 11/23/18 07:15 83 32 H 91 L 11/23/18 03:57 97.8 F 81 23 H 159/79 H 92 L 11/23/18 00:14 82 18 92 L Weight 189 lb 4.8 oz 11/22/18 11/23/18 11/24/18 06:59 06:59 06:59 Intake Total 920 1270 Output Total 2625 960 Balance -1705 310 - Physical Examination General/Neuro: alert & oriented x3, NAD Neck: carotid US brisk, no JVD present Lungs: CTA, unlabored respirations Heart: PMI normal, RRR Abdomen: NT/ND, soft Extremities: + femoral B - Labs Result Diagrams: 11/23/18 04:36 11/23/18 04:36 Troponin/CKMB Troponin I Less than 0.010 ng/mL (< 0.028) 11/18/18 02:12 - Assessment/Plan afib pneumonia Pt currently in SR on PO CCB On Abx and NOAC echo still pending No other recommendations. Ok to dc tele if going to stay further. If echo WNL, will sign off
[2018-11-23] MEDS: Potassium Chloride 10 MEQ TAB PO SCH ×3 (09:00→15:51)
[2018-11-23] MEDS: Apixaban 5 MG TAB PO SCH ×2 (09:00→20:30)
[2018-11-23] MEDS: guaiFENesin ER 600 MG TAB PO SCH ×2 (09:00→20:31)
[2018-11-23] MEDS: Sucralfate 1 GM TAB PO SCH ×3 (09:00→20:31)
[2018-11-23] MEDS: Saccharomyces boulardii 250 MG CAP PO SCH (09:01)
[2018-11-23] MEDS: Finasteride 5 MG TAB PO SCH (09:01)
[2018-11-23] MEDS: Fluticasone Propionate Nasal Spray 16 gm Bottle NASAL SCH (09:01)
[2018-11-23] MEDS: Furosemide 40 MG/4 ML VIAL SLOW IVP SCH (09:01)
[2018-11-23] MEDS: predniSONE 20 MG TAB PO SCH (09:01)
--- NOTE | 2018-11-23 09:15 | RAD ---
Portable frontal chest radiograph: 11/23/2018 COMPARISON: 11/18/2018 HISTORY: Evaluate pulmonary parenchymal infiltrates FINDINGS: When compared to the prior examination, there is worsening opacification within the right l [place]ina base with interstitial and alveolar opacity, as well as blunting of the costophrenic angle suggesting pleural effusion. There is also new nonspecific interstitial prominence in the left perihi lar region, the mid left lung zone, and the left lung base. No pneumothorax is seen. IMPRESSION: New bilateral interstitial prominence with focal new pleural-parenchymal opacity in the r ight lung base. Findings suggest pulmonary edema and/or multifocal infectious pneumonitis. Short-term follow-up imaging following treatment is advised to document resolution.
[2018-11-23] MEDS ORDERED: Potassium Chloride 20 MEQ TAB PO SCH (10:45)
--- NOTE | 2018-11-23 11:43 | PRG ---
DATE OF SERVICE: 11/23/2018 SERVICE: Pulmonary Medicine. INTERVAL HISTORY: The patient is doing poorly from respiratory standpoint. Any time he takes a holiday from his CPAP, he has desaturation events. When he is on a CPAP, he looks to be comfortable. He is coughing a lot, but not bringing up any sputum. He does feel like it is down there and he can liberate it. He denies any current fevers or chills. There were no significant overnight events otherwise. PHYSICAL EXAMINATION: VITAL SIGNS: Afebrile, pulse 84, blood pressure 148/79, respirations 24, and saturation 90% on 4 L nasal cannula. GENERAL: The patient is awake and alert, in no apparent distress. LUNGS: Decent air entry. Extensive rhonchi present. No prolonged expiratory phase or wheezing is appreciated. HEART: Normal rate. Regular. ABDOMEN: Soft, nontender, and nondistended. Bowel sounds are positive. MUSCULOSKELETAL: No cyanosis or clubbing. No pitting in the bilateral lower extremities. NEUROLOGIC: Grossly nonfocal. LABORATORY DATA: WBC 16.4, hemoglobin 10.1, and platelets 194,000. Neutrophil count is 84% on top of 1% bands. Creatinine 1.42. Basic metabolic profile is otherwise unremarkable except for potassium of 3.5. This is improved compared to yesterday. Blood cultures x2 are negative at 5 days. IMAGING: Chest x-ray demonstrates bilateral interstitial process. It is multifocal involving the right lower lobe and left lower lobe and possibly left upper lobe. The costophrenic angle on the left is sharp. There is likely a right-sided pleural effusion. ASSESSMENT: 1. Acute on chronic hypoxic respiratory failure. 2. Healthcare-associated pneumonia. 3. History of right lower lobectomy secondary to squamous cell carcinoma of the lung. 4. Atrial fibrillation, currently sinus rhythm. DISCUSSION AND PLAN: Because he had a little hemoptysis yesterday, I am going to check an ANCA, SANJAY, and rheumatoid factor. We will put him on high-flow nasal cannula. If he does not tolerate this, he will need to be moved to the IMCU or the ICU for closer monitoring if the noninvasive therapy is indicated. We will initiate Mucinex and introduce him to physiotherapy to see if we can help liberate some of the sputum. I will do a bedside ultrasound to see whether or not pocket of fluid is on the right. If present, thoracentesis will need to be considered. I will repeat a BNP, and get potassium. I am very much interested in the results of the echocardiogram, particularly the competency of that mitral valve. Pulmonary/Critical Care will continue to follow very closely. Job ID: [id number] TRAMAINE
[2018-11-23] MEDS ORDERED: Furosemide 40 MG/4 ML VIAL SLOW IVP SCH (15:00)
--- NOTE | 2018-11-23 17:22 | PDOC.PN ---
- Subjective Encounter Start Date: 11/23/18 Encounter Start Time: 10:30 Patient seen and examined for Resp failure. Started on high flow O2. No CP. No new complaints. No overnight events - Objective Resuscitation Status - Order Detail: 11/18/18 16:40 Resuscitation Status Routine Resuscitation Status: FULL: Full Resuscitation MAR Reviewed: Yes Vital Signs & Weight: Vital Signs (12 hours) Temp Pulse Resp BP Pulse Ox 11/23/18 15:53 97.8 F 73 20 102/55 L 97 11/23/18 11:35 93 L 11/23/18 11:30 97.8 F 110 H 22 H 116/78 93 L 11/23/18 10:51 90 24 H 93 L 11/23/18 09:00 83 11/23/18 08:35 92 L 11/23/18 08:30 98.3 F 84 24 H 148/79 H 90 L 11/23/18 07:41 83 32 H 91 L 11/23/18 07:22 91 L 11/23/18 07:20 83 32 H 91 L 11/23/18 07:15 83 32 H 91 L Weight Weight 189 lb 4.8 oz I&O: 11/22/18 11/23/18 11/24/18 06:59 06:59 06:59 Intake Total 920 1270 Output Total 2625 960 Balance -1705 310 Result Diagrams: 11/23/18 04:36 11/23/18 04:36 EKG Reviewed by me: Yes (Tele SR) Phys Exam - Physical Examination Mild resp distress Respiratory: wheezing present Bibasilar rales Cardiovascular: RRR, no rub Gastrointestinal: soft, non-tender, positive bowel sounds Neurological: moves all 4 limbs Dx/Plan - Plan IMPRESSION: Acute on chronic hypoxic Resp failure Sepsis with acute organ dysfunction due to B/L Pneumonia ? Pneumococcal. 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 Review of Systems - Review of Systems Constitutional: negative: fever, chills, sweats, weakness, malaise, other Respiratory: Cough, SOB with Excertion, Sputum Gastrointestinal: negative: Nausea, Vomiting, Abdominal Pain, Diarrhea, Constipation, Melena, Hematochezia, Other Genitourinary: negative: Dysuria, Frequency, Incontinence, Hematuria, Retention , Other - Medications/Allergies Allergies/Adverse Reactions: Allergies Allergy/AdvReac Type Severity Reaction Status Date / Time azithromycin [From Zithromax] Allergy Verified 11/18/18 12:31 Medications: Current Medications Acetaminophen (Tylenol) 650 mg PO Q4H PRN PRN Reason: Headache/Fever or Pain Last Admin: 11/22/18 10:52 Dose: 650 mg Hydrocodone Bitart/Acetaminophen ([place] 5/325) 1 tab PO Q4H PRN PRN Reason: Moderate Pain (4-6) Albuterol/Ipratropium (Duoneb) 3 ml NEB [id number] PRN PRN Reason: SOB &/or Wheezing Last Admin: 11/22/18 13:28 Dose: 3 ml Apixaban (Eliquis) 5 mg PO BID [facility] Last Admin: 11/23/18 09:00 Dose: 5 mg Atorvastatin Calcium (Lipitor) 10 mg PO HS [facility] Last Admin: 11/22/18 20:07 Dose: 10 mg Bethanechol Chloride (Urecholine) 25 mg PO DAILY [facility] Last Admin: 11/23/18 09:00 Dose: 25 mg Diltiazem HCl (Cardizem Cd) 120 mg PO BID [facility] Last Admin: 11/23/18 09:00 Dose: 120 mg Famotidine (Pepcid) 20 mg PO HS [facility] Last Admin: 11/22/18 20:07 Dose: 20 mg Finasteride (Proscar) 5 mg PO DAILY [facility] Last Admin: 11/23/18 09:01 Dose: 5 mg Fluticasone Propionate (Flonase Nasal [place]) 0 gm NASAL DAILY [facility] Last Admin: 11/23/18 09:01 Dose: 1 spr Furosemide (Lasix) 40 mg SLOW IVP DAILY [facility] Last Admin: 11/23/18 09:01 Dose: 40 mg Guaifenesin (Mucinex) 600 mg PO Q12HR [facility] Last Admin: 11/23/18 09:00 Dose: 600 mg Piperacillin Sod/Tazobactam (Sod 3.375 gm/ Sodium Chloride) 100 mls @ 200 mls/ hr IVPB Q6HR [facility] Last Admin: 11/23/18 12:04 Dose: 100 mls Levofloxacin 750 mg/ Device 150 mls @ 100 mls/hr IVPB Q24HR [facility] Last Admin: 11/23/18 03:57 Dose: 150 mls Levalbuterol HCl (Xopenex Conc) 1.25 mg NEB [id number] [facility] Last Admin: 11/23/18 14:42 Dose: Not Given Memantine (Namenda) 10 mg PO BID [facility] Last Admin: 11/23/18 09:00 Dose: 10 mg Metaxalone (Skelaxin) 800 mg PO TID PRN PRN Reason: Muscle Spasm Mometasone Furoate (Asmanex Hfa 200 Mcg) 2 puff INH BID-RT [facility] Last Admin: 11/23/18 07:41 Dose: 2 puff Montelukast Sodium (Singulair) 10 mg PO QPM [facility] Last Admin: 11/22/18 20:08 Dose: 10 mg Ondansetron HCl (Zofran) 4 mg IVP Q6H PRN PRN Reason: Nausea/Vomiting Ondansetron HCl (Zofran Odt) 4 mg PO Q6H PRN PRN Reason: Nausea/Vomiting Pantoprazole Sodium (Protonix) 40 mg PO BID [facility] Last Admin: 11/23/18 09:00 Dose: 40 mg Potassium Chloride (Klor-Con 10) 10 meq PO TID-WM [facility] Last Admin: 11/23/18 15:51 Dose: 10 meq Saccharomyces Boulardii (Florastor) 250 mg PO DAILY [facility] Last Admin: 11/23/18 09:01 Dose: 250 mg Sertraline HCl (Zoloft) 25 mg PO DAILY [facility] Last Admin: 11/23/18 09:00 Dose: 25 mg Sodium Chloride (Flush - Normal Saline) 10 ml IVF Q12HR [facility] Last Admin: 11/23/18 09:02 Dose: 10 ml Sodium Chloride (Flush - Normal Saline) 10 ml IVF PRN PRN PRN Reason: Saline Flush Sodium Chloride ([place] Nasal [place] 0.65%) 0 ml EA NARE PRN PRN PRN Reason: Nasal Dryness Sucralfate (Carafate) 1 gm PO TID [facility] Last Admin: 11/23/18 15:51 Dose: 1 gm Temazepam (Restoril) 30 mg PO HSPRN PRN PRN Reason: Insomnia
[2018-11-23] MEDS: Temazepam 15 MG CAP PO PRN (20:29)
[2018-11-23] MEDS: Atorvastatin Calcium 10 MG TAB PO SCH (20:31)
[2018-11-23] MEDS: Famotidine 20 MG TAB PO SCH (20:32)
[2018-11-23] MEDS: Montelukast Sodium 10 mg Tablet PO SCH (20:33)
[2018-11-24] MEDS: Levalbuterol HCl 1.25 MG/0.5 ML NEB NEB SCH ×5 (00:05→23:11)
[2018-11-24] MEDS: Piperacillin/Tazobactam 3.375 GM in Sodium Chloride 0.9% 100 ML IVPB SCH ×5 (00:30→23:46)
[2018-11-24 05:09] LABS: Phosphorus 4.9 mg/dL (2.3-4.7)
[2018-11-24 05:11] LABS: Anion Gap 14 mmol/L (10-20); BUN (Urea Nitrogen) 43 mg/dL (8.4-25.7); Calc. Creatinine Clearance 39 mL/min (70-130); Calcium 8.4 mg/dL (7.8-10.44); Carbon Dioxide 25 mmol/L (23-31); Chloride 105 mmol/L (98-107); Estimated GFR-MDRD 38; Glucose 111 mg/dL (83-110); Magnesium 2.1 mg/dL (1.6-2.6); Potassium 3.4 mmol/L (3.5-5.1); Sodium 141 mmol/L (136-145)
[2018-11-24] MEDS: Mometasone 200 MCG HFA INHALER INH SCH ×2 (05:52→18:23)
[2018-11-24] MEDS: Fluticasone Propionate Nasal Spray 16 gm Bottle NASAL SCH (09:15)
[2018-11-24] MEDS: Apixaban 5 MG TAB PO SCH (09:16)
[2018-11-24] MEDS: Saccharomyces boulardii 250 MG CAP PO SCH (09:16)
[2018-11-24] MEDS: Potassium Chloride 10 MEQ TAB PO SCH ×3 (09:17→16:32)
[2018-11-24] MEDS: guaiFENesin ER 600 MG TAB PO SCH ×2 (09:17→20:07)
[2018-11-24] MEDS: Finasteride 5 MG TAB PO SCH (09:18)
[2018-11-24] MEDS: Furosemide 40 MG/4 ML VIAL SLOW IVP SCH (09:19)
[2018-11-24] MEDS: Sucralfate 1 GM TAB PO SCH ×3 (09:19→20:06)
--- NOTE | 2018-11-24 15:47 | PDOC.PN ---
- Subjective Encounter Start Date: 11/24/18 Encounter Start Time: 10:30 Patient seen and examined for respiratory failure. SOB gradually improving. On High flow O2. No fever. No new complaints. No overnight events - Objective Resuscitation Status - Order Detail: 11/18/18 16:40 Resuscitation Status Routine Resuscitation Status: FULL: Full Resuscitation MAR Reviewed: Yes Vital Signs & Weight: Vital Signs (12 hours) Temp Pulse Resp BP BP Pulse Ox 11/24/18 12:43 99.0 F 65 16 116/57 L 99 11/24/18 11:39 75 20 94 L 11/24/18 09:30 94 L 11/24/18 09:16 67 129/60 11/24/18 08:00 98.0 F 67 16 129/60 95 11/24/18 06:11 79 20 93 L 11/24/18 05:52 79 20 93 L 11/24/18 05:49 79 20 93 L 11/24/18 04:00 98.1 F 70 18 105/59 L 89 L Weight Weight 189 lb 4.8 oz I&O: 11/23/18 11/24/18 11/25/18 06:59 06:59 06:59 Intake Total 1270 1310 360 Output Total 960 1450 Balance 310 -140 360 Result Diagrams: 11/23/18 04:36 11/24/18 04:08 EKG Reviewed by me: Yes (Tele SR) Phys Exam - Physical Examination Mild resp distress, On High flow O2 Respiratory: no wheezing B/L rhonchi. Bibasilar rales Cardiovascular: RRR, no rub Gastrointestinal: soft, non-tender, positive bowel sounds Musculoskeletal: no edema Neurological: moves all 4 limbs Dx/Plan - Plan plan discussed w/ family IMPRESSION: Acute on chronic hypoxic Resp failure Sepsis with acute organ dysfunction due to B/L Pneumonia ? Pneumococcal. New onset Afib - in SR 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 Alzheimer's dementia CKD 3 Former smoker AJ on CPAP Swallow dysfunction Hypokalemia/Hypomagnesemia Epistaxis/Hemoptysis - no new episode h/o RA PLAN: Echo reviewed Cont current Atbx on Eliquis Cont Nebs/CPAP HS on High flow O2 AM labs Review of Systems - Review of Systems Constitutional: negative: fever, chills, sweats, weakness, malaise, other Cardiovascular: negative: chest pain, palpitations, orthopnea, paroxysmal nocturnal dyspnea, edema, light headedness, other - Medications/Allergies Allergies/Adverse Reactions: Allergies Allergy/AdvReac Type Severity Reaction Status Date / Time azithromycin [From Zithromax] Allergy Verified 11/18/18 12:31 Medications: Current Medications Acetaminophen (Tylenol) 650 mg PO Q4H PRN PRN Reason: Headache/Fever or Pain Last Admin: 11/22/18 10:52 Dose: 650 mg Hydrocodone Bitart/Acetaminophen ([place] 5/325) 1 tab PO Q4H PRN PRN Reason: Moderate Pain (4-6) Albuterol/Ipratropium (Duoneb) 3 ml NEB [id number] PRN PRN Reason: SOB &/or Wheezing Last Admin: 11/22/18 13:28 Dose: 3 ml Apixaban (Eliquis) 5 mg PO BID [facility] Last Admin: 11/24/18 09:16 Dose: 5 mg Atorvastatin Calcium (Lipitor) 10 mg PO HS [facility] Last Admin: 11/23/18 20:31 Dose: 10 mg Bethanechol Chloride (Urecholine) 25 mg PO DAILY [facility] Last Admin: 11/24/18 09:16 Dose: 25 mg Diltiazem HCl (Cardizem Cd) 120 mg PO BID [facility] Last Admin: 11/24/18 09:16 Dose: 120 mg Famotidine (Pepcid) 20 mg PO HS [facility] Last Admin: 11/23/18 20:32 Dose: 20 mg Finasteride (Proscar) 5 mg PO DAILY [facility] Last Admin: 11/24/18 09:18 Dose: 5 mg Fluticasone Propionate (Flonase Nasal [place]) 0 gm NASAL DAILY [facility] Last Admin: 11/24/18 09:15 Dose: 1 spr Furosemide (Lasix) 40 mg SLOW IVP DAILY [facility] Last Admin: 11/24/18 09:19 Dose: 40 mg Guaifenesin (Mucinex) 600 mg PO Q12HR [facility] Last Admin: 11/24/18 09:17 Dose: 600 mg Piperacillin Sod/Tazobactam (Sod 3.375 gm/ Sodium Chloride) 100 mls @ 200 mls/ hr IVPB Q6HR [facility] Last Admin: 11/24/18 12:48 Dose: 100 mls Levofloxacin 750 mg/ Device 150 mls @ 100 mls/hr IVPB Q24HR [facility] Last Admin: 11/24/18 05:21 Dose: 150 mls Levalbuterol HCl (Xopenex Conc) 1.25 mg NEB [id number] [facility] Last Admin: 11/24/18 11:39 Dose: 1.25 mg Memantine (Namenda) 10 mg PO BID [facility] Last Admin: 11/24/18 09:17 Dose: 10 mg Metaxalone (Skelaxin) 800 mg PO TID PRN PRN Reason: Muscle Spasm Mometasone Furoate (Asmanex Hfa 200 Mcg) 2 puff INH BID-RT [facility] Last Admin: 11/24/18 05:52 Dose: 2 puff Montelukast Sodium (Singulair) 10 mg PO QPM [facility] Last Admin: 11/23/18 20:33 Dose: 10 mg Ondansetron HCl (Zofran) 4 mg IVP Q6H PRN PRN Reason: Nausea/Vomiting Ondansetron HCl (Zofran Odt) 4 mg PO Q6H PRN PRN Reason: Nausea/Vomiting Pantoprazole Sodium (Protonix) 40 mg PO BID [facility] Last Admin: 11/24/18 09:16 Dose: 40 mg Potassium Chloride (Klor-Con 10) 10 meq PO TID-WM [facility] Last Admin: 11/24/18 12:49 Dose: 10 meq Saccharomyces Boulardii (Florastor) 250 mg PO DAILY [facility] Last Admin: 11/24/18 09:16 Dose: 250 mg Sertraline HCl (Zoloft) 25 mg PO DAILY [facility] Last Admin: 11/24/18 09:18 Dose: 25 mg Sodium Chloride (Flush - Normal Saline) 10 ml IVF Q12HR [facility] Last Admin: 11/24/18 09:19 Dose: 10 ml Sodium Chloride (Flush - Normal Saline) 10 ml IVF PRN PRN PRN Reason: Saline Flush Sodium Chloride ([place] Nasal [place] 0.65%) 0 ml EA NARE PRN PRN PRN Reason: Nasal Dryness Sodium Chloride (Ns For Inhalation) 3 ml NEB [id number] [facility] Sucralfate (Carafate) 1 gm PO TID [facility] Last Admin: 11/24/18 15:17 Dose: 1 gm Temazepam (Restoril) 30 mg PO HSPRN PRN PRN Reason: Insomnia Last Admin: 11/23/18 20:29 Dose: 30 mg
[2018-11-24] MEDS: Micafungin 100 MG in Sodium Chloride 0.9% 100 ML IVPB SCH (17:10)
[2018-11-24] MEDS: methylPREDNISolone Sod Succ 40 MG VIAL IVP SCH ×2 (17:10→23:46)
--- NOTE | 2018-11-24 17:15 | PRG ---
DATE OF SERVICE: 11/24/2018 SERVICE: Pulmonary Medicine. INTERVAL HISTORY: The patient indicates to me that he is breathing a little bit better. He is not coughing much. He is certainly not bring up any phlegm. Denies any current fevers or chills. There are no overnight events otherwise. PHYSICAL EXAMINATION: VITAL SIGNS: Afebrile with a T-max of 99.0. Pulse 65, blood pressure 116/57, respirations 16, and saturation 99% on 63% FiO2 delivered via high-flow nasal cannula. GENERAL: The patient is awake and alert, in no apparent distress. LUNGS: Excellent air entry. There are extensive crackles present throughout bilateral lung desai. HEART: Normal rate and regular. ABDOMEN: Soft, nontender, and nondistended. Bowel sounds are positive. MUSCULOSKELETAL: No cyanosis or clubbing. No pitting in the bilateral lower extremities. NEUROLOGIC: Grossly nonfocal. LABORATORY DATA: Potassium 3.4. Basic metabolic profile is otherwise unremarkable except for creatinine of 1.73, which is gently up trending. BNP 499, phosphorus 4.9. WBC 16.4, and downtrending. Lymphocyte count is rebounding, band count is now 1% and dropping. Blood cultures x2 are negative. IMAGING STUDIES: Echocardiogram shows an EF of 50% to 55%. Diastology was not commented on. ASSESSMENT: 1. Acute on chronic hypoxic respiratory failure. 2. Healthcare-associated pneumonia. 3. Squamous cell carcinoma of the lung, status post right lower lobectomy. 4. Atrial fibrillation, returned to sinus rhythm. 5. Rheumatoid arthritis with history of interstitial lung process. 6. Chronic obstructive pulmonary disease with acute exacerbation. DISCUSSION AND PLAN: I will introduce some steroids. We will continue our antibiotics. I will empirically put him on antifungal medication as this inflammatory process is not clearing quickly. I will repeat a chest x-ray tomorrow morning. If the right infiltrate is worse or more dense, I will do a bedside ultrasound and do a thoracentesis if fluid is there. If it is not, repeat CT of the chest will be considered in preparation for possible bronchoscopy. Multiple inflammatory serologies are currently pending. My suspicion is that we are not dealing with a bacterial process. Job ID: [id number] MTDD
[2018-11-24] MEDS: Sodium Chloride For Inhalation 0.9% 3 ML NEB NEB SCH ×2 (18:23→23:15)
[2018-11-24] MEDS: Montelukast Sodium 10 mg Tablet PO SCH (20:05)
[2018-11-24] MEDS: Temazepam 15 MG CAP PO PRN (20:05)
[2018-11-24] MEDS: Atorvastatin Calcium 10 MG TAB PO SCH (20:06)
[2018-11-24] MEDS: Famotidine 20 MG TAB PO SCH (20:07)
[2018-11-25] MEDS: methylPREDNISolone Sod Succ 40 MG VIAL IVP SCH ×3 (05:40→17:17)
[2018-11-25] MEDS: Piperacillin/Tazobactam 3.375 GM in Sodium Chloride 0.9% 100 ML IVPB SCH ×3 (05:40→18:48)
[2018-11-25 05:53] LABS: Hemoglobin 9.3 g/dL (14.0-18.0); Platelet Count 220 thou/uL (130-400)
[2018-11-25 06:20] LABS: Anion Gap 15 mmol/L (10-20); BUN (Urea Nitrogen) 53 mg/dL (8.4-25.7); Calc. Creatinine Clearance 40 mL/min (70-130); Calcium 8.2 mg/dL (7.8-10.44); Carbon Dioxide 23 mmol/L (23-31); Chloride 103 mmol/L (98-107); Estimated GFR-MDRD 39; Glucose 148 mg/dL (83-110); Magnesium 1.8 mg/dL (1.6-2.6); Potassium 3.3 mmol/L (3.5-5.1); Sodium 138 mmol/L (136-145)
[2018-11-25] MEDS: Levalbuterol HCl 1.25 MG/0.5 ML NEB NEB SCH ×4 (06:32→23:29)
[2018-11-25] MEDS: Sodium Chloride For Inhalation 0.9% 3 ML NEB NEB SCH ×4 (06:32→23:29)
[2018-11-25] MEDS: Mometasone 200 MCG HFA INHALER INH SCH ×2 (06:36→18:20)
[2018-11-25] MEDS: Sucralfate 1 GM TAB PO SCH ×3 (09:46→21:09)
[2018-11-25] MEDS: Saccharomyces boulardii 250 MG CAP PO SCH (09:46)
[2018-11-25] MEDS: Fluticasone Propionate Nasal Spray 16 gm Bottle NASAL SCH (09:46)
[2018-11-25] MEDS: guaiFENesin ER 600 MG TAB PO SCH ×2 (09:47→21:09)
[2018-11-25] MEDS: Finasteride 5 MG TAB PO SCH (09:47)
[2018-11-25] MEDS: Potassium Chloride 10 MEQ TAB PO SCH ×3 (09:49→17:18)
--- NOTE | 2018-11-25 13:03 | RAD ---
PORTABLE CHEST: Date: 11/25/18 HISTORY: Hospital follow-up. Follow up infiltrate. COMPARISON: 11/23/18. FINDINGS: Bilateral infiltrates again noted. Diffuse interstitial infiltrate throughout the left lung is again noted. Interstitial and hazy alveolar infiltrate in the right mid and lower lung again noted. Evidenc e of bilateral effusions. IMPRESSION: The lung findings have not significantly changed when compared to 11/23/18. POS: OFF
--- NOTE | 2018-11-25 14:52 | PDOC.PN ---
- Subjective Encounter Start Date: 11/25/18 Encounter Start Time: 10:45 Patient seen and examined for Resp failure. On High flow O2. No fever. No other complaints. Overnight events noted - had diarrhea - C diff ruled out. - Objective Resuscitation Status - Order Detail: 11/18/18 16:40 Resuscitation Status Routine Resuscitation Status: FULL: Full Resuscitation MAR Reviewed: Yes Vital Signs & Weight: Vital Signs (12 hours) Temp Pulse Resp BP Pulse Ox Pulse Ox Pulse Ox 11/25/18 12:00 99.5 F 71 16 130/73 95 11/25/18 11:58 98 11/25/18 11:48 75 20 99 11/25/18 09:46 68 11/25/18 09:31 95 89 L 11/25/18 08:00 99 11/25/18 07:37 99.1 F 68 16 128/73 99 11/25/18 06:47 98 11/25/18 06:36 74 20 98 11/25/18 06:32 74 20 98 11/25/18 06:30 74 20 98 11/25/18 03:29 98.1 F 66 19 124/59 L 97 Pulse Ox 11/25/18 12:00 11/25/18 11:58 11/25/18 11:48 11/25/18 09:46 11/25/18 09:31 99 11/25/18 08:00 11/25/18 07:37 11/25/18 06:47 11/25/18 06:36 11/25/18 06:32 11/25/18 06:30 11/25/18 03:29 Weight Weight 189 lb 4.8 oz I&O: 11/24/18 11/25/18 11/26/18 06:59 06:59 06:59 Intake Total 1310 1530 Output Total 1450 1652 Balance -140 -122 Result Diagrams: 11/25/18 05:17 11/25/18 05:17 EKG Reviewed by me: Yes (Tele SR/ Transient AV block) Phys Exam - Physical Examination Constitutional: NAD Respiratory: wheezing present B/L rhonchi and rales in lower half. Accessory muscle use Cardiovascular: RRR, no rub Gastrointestinal: soft, non-tender, positive bowel sounds Musculoskeletal: no edema Neurological: non-focal, moves all 4 limbs Psychiatric: A&O x 3 Dx/Plan - Plan plan discussed w/ family, PT/OT, speech therapy IMPRESSION: Acute on chronic hypoxic Resp failure - on high flow O2 Sepsis with acute organ dysfunction due to B/L Pneumonia ? Fungal New onset Afib - in SR, Transient AV block RLE DVT - started on anticoag COPD/?Pulmonary fibrosis Alzheimer's dementia CKD 3 Former smoker AJ on CPAP Swallow dysfunction - on modified diet Hypokalemia/Hypomagnesemia Epistaxis/Hemoptysis - no new episode h/o RA Metabolic acidosis/Lactic acidosis - resolved Chronic Anemia PLAN: Cont IV Micafungin/Levaquin/Zosyn Eliquis on hold for possible thoracentesis Cont high flow O2/Nebs/CPAP HS Reduce Cardizem dose to 90 BID due to transient AV block Replace Potassium CBC in AM AM labs Review of Systems - Review of Systems Respiratory: SOB with Excertion. negative: Cough, Dry, Shortness of Breath, Hemoptysis, Pleuritic Pain, Sputum, Wheezing Cardiovascular: negative: chest pain, palpitations, orthopnea, paroxysmal nocturnal dyspnea, edema, light headedness, other Gastrointestinal: negative: Nausea, Vomiting, Abdominal Pain, Diarrhea, Constipation, Melena, Hematochezia, Other - Medications/Allergies Allergies/Adverse Reactions: Allergies Allergy/AdvReac Type Severity Reaction Status Date / Time azithromycin [From Zithromax] Allergy Verified 11/18/18 12:31 Medications: Current Medications Acetaminophen (Tylenol) 650 mg PO Q4H PRN PRN Reason: Headache/Fever or Pain Last Admin: 11/22/18 10:52 Dose: 650 mg Hydrocodone Bitart/Acetaminophen ([place] 5/325) 1 tab PO Q4H PRN PRN Reason: Moderate Pain (4-6) Albuterol/Ipratropium (Duoneb) 3 ml NEB [id number] PRN PRN Reason: SOB &/or Wheezing Last Admin: 11/22/18 13:28 Dose: 3 ml Apixaban (Eliquis) 5 mg PO BID [facility] Last Admin: 11/24/18 09:16 Dose: 5 mg Atorvastatin Calcium (Lipitor) 10 mg PO HS [facility] Last Admin: 11/24/18 20:06 Dose: 10 mg Bethanechol Chloride (Urecholine) 25 mg PO DAILY [facility] Last Admin: 11/25/18 09:46 Dose: 25 mg Diltiazem HCl (Cardizem Sr) 90 mg PO BID [facility] Famotidine (Pepcid) 20 mg PO HS [facility] Last Admin: 11/24/18 20:07 Dose: 20 mg Finasteride (Proscar) 5 mg PO DAILY [facility] Last Admin: 11/25/18 09:47 Dose: 5 mg Fluticasone Propionate (Flonase Nasal [place]) 0 gm NASAL DAILY [facility] Last Admin: 11/25/18 09:46 Dose: 1 spr Guaifenesin (Mucinex) 600 mg PO Q12HR [facility] Last Admin: 11/25/18 09:47 Dose: 600 mg Piperacillin Sod/Tazobactam (Sod 3.375 gm/ Sodium Chloride) 100 mls @ 200 mls/ hr IVPB Q6HR [facility] Last Admin: 11/25/18 12:05 Dose: 100 mls Levofloxacin 750 mg/ Device 150 mls @ 100 mls/hr IVPB Q24HR [facility] Last Admin: 11/25/18 04:06 Dose: 150 mls Micafungin Sodium 100 mg/ (Sodium Chloride) 100 mls @ 100 mls/hr IVPB Q24HR [facility] Stop: 11/28/18 17:59 Last Admin: 11/24/18 17:10 Dose: 100 mls Levalbuterol HCl (Xopenex Conc) 1.25 mg NEB [id number] [facility] Last Admin: 11/25/18 11:48 Dose: 1.25 mg Memantine (Namenda) 10 mg PO BID [facility] Last Admin: 11/25/18 09:46 Dose: 10 mg Metaxalone (Skelaxin) 800 mg PO TID PRN PRN Reason: Muscle Spasm Methylprednisolone Sodium Succinate (Solu-Medrol) 40 mg IVP Q6HR [facility] Last Admin: 11/25/18 12:05 Dose: 40 mg Mometasone Furoate (Asmanex Hfa 200 Mcg) 2 puff INH BID-RT [facility] Last Admin: 11/25/18 06:36 Dose: 2 puff Montelukast Sodium (Singulair) 10 mg PO QPM [facility] Last Admin: 11/24/18 20:05 Dose: 10 mg Ondansetron HCl (Zofran) 4 mg IVP Q6H PRN PRN Reason: Nausea/Vomiting Ondansetron HCl (Zofran Odt) 4 mg PO Q6H PRN PRN Reason: Nausea/Vomiting Pantoprazole Sodium (Protonix) 40 mg PO BID [facility] Last Admin: 11/25/18 09:47 Dose: 40 mg Potassium Chloride (Klor-Con 10) 20 meq PO TID-WM [facility] Stop: 11/25/18 23:59 Last Admin: 11/25/18 12:04 Dose: 20 meq Saccharomyces Boulardii (Florastor) 250 mg PO DAILY [facility] Last Admin: 11/25/18 09:46 Dose: 250 mg Sertraline HCl (Zoloft) 25 mg PO DAILY [facility] Last Admin: 11/25/18 09:47 Dose: 25 mg Sodium Chloride (Flush - Normal Saline) 10 ml IVF Q12HR [facility] Last Admin: 11/25/18 09:47 Dose: 10 ml Sodium Chloride (Flush - Normal Saline) 10 ml IVF PRN PRN PRN Reason: Saline Flush Sodium Chloride ([place] Nasal [place] 0.65%) 0 ml EA NARE PRN PRN PRN Reason: Nasal Dryness Sodium Chloride (Ns For Inhalation) 3 ml NEB [id number] [facility] Last Admin: 11/25/18 11:48 Dose: 3 ml Sucralfate (Carafate) 1 gm PO TID [facility] Last Admin: 11/25/18 09:46 Dose: 1 gm Temazepam (Restoril) 30 mg PO HSPRN PRN PRN Reason: Insomnia Last Admin: 11/24/18 20:05 Dose: 30 mg
[2018-11-25] MEDS ORDERED: Magnesium 2 GM/50 ML 2 GM in Premix Bag 1 BAG IVPB SCH (15:00)
--- NOTE | 2018-11-25 15:21 | PRG ---
DATE OF SERVICE: 11/25/2018 SERVICE: Pulmonary Medicine. INTERVAL HISTORY: The patient is doing okay from respiratory standpoint. He is roughly stable. He indicates not having much of a cough or sputum production. Denies any current fevers, chills, nausea, or vomiting. There were no significant overnight events. He remains on high amounts of oxygen. We have been able to wean down his FiO2 down to 50% over the last 24 hours. PHYSICAL EXAMINATION: VITAL SIGNS: Afebrile with a T-max of 99.5. Pulse 71, blood pressure 130/73, respirations 16, and saturation 95% on high-flow nasal cannula. GENERAL: The patient is awake and alert, in no apparent distress. LUNGS: Crackles are present and quite extensive. HEART: Normal rate and regular. ABDOMEN: Soft, nontender, and nondistended. Bowel sounds are positive. : No [place]. NEUROLOGIC: Grossly nonfocal. LABORATORY DATA: Hemoglobin 9.3 and gently downtrending. Creatinine 1.68 and improving. BUN 53. Basic metabolic profile is otherwise unremarkable. Potassium 3.3, magnesium 1.8, and phosphorus 5.0. Respiratory virus panel is unremarkable. C. diff antigen and toxin are negative. IMAGING STUDIES: Chest x-ray shows interstitial changes in bibasilar and left upper lobes. The right upper lobe appears to be spared. There is a right-sided pleural-parenchymal change, which seems to be a touch less intense than prior. ASSESSMENT: 1. Acute hypoxic respiratory failure. 2. Healthcare-associated pneumonia, status post 4 days of antibiotics. 3. Squamous cell carcinoma of the lung, status post right lower lobectomy. 4. Atrial fibrillation, currently sinus. 5. Rheumatoid arthritis with history of interstitial lung process. 6. Chronic obstructive pulmonary disease with acute exacerbation. DISCUSSION AND PLAN: I will continue empiric antibiotics, nebulized medications, and steroids. We are going to leave him on high-dose steroids in case we are dealing with inflammatory process. I will repeat a CT of the chest in the morning. If the effusion is present, thoracentesis will likely be performed. If it is not, we may need to do a bronchoscopy on Monday. I did discuss my concerns with doing a procedure on this patient with the patient and his . When some is on this amount of oxygen, sometimes it can be very challenging to liberate the patient from mechanical ventilation. We will cross that bridge, however, if we have to. I will continue holding his anticoagulation in case the procedure is indicated Monday. Job ID: [id number]
[2018-11-25] MEDS: Micafungin 100 MG in Sodium Chloride 0.9% 100 ML IVPB SCH (17:25)
[2018-11-25] MEDS: Montelukast Sodium 10 mg Tablet PO SCH (21:07)
[2018-11-25] MEDS: Temazepam 15 MG CAP PO PRN (21:08)
[2018-11-25] MEDS: Famotidine 20 MG TAB PO SCH (21:09)
[2018-11-25] MEDS: Diltiazem HCl SR 90 mg Capsule PO SCH (21:10)
[2018-11-25] MEDS: Atorvastatin Calcium 10 MG TAB PO SCH (21:10)
[2018-11-26] MEDS: Piperacillin/Tazobactam 3.375 GM in Sodium Chloride 0.9% 100 ML IVPB SCH ×3 (00:26→12:03)
[2018-11-26] MEDS: methylPREDNISolone Sod Succ 40 MG VIAL IVP SCH ×4 (00:30→17:22)
[2018-11-26 06:19] LABS: Band 6 % (5-11); Lymphocytes 9 % (21-51); MDiff Complete? YES; Monocytes 2 % (0-10); Neutrophil 83 % (42-75)
[2018-11-26 06:20] LABS: Hemoglobin 9.8 g/dL (14.0-18.0); Mean Corpuscular HGB CONC 32.9 g/dL (32.0-36.0); Mean Corpuscular Hemoglobin 32.8 pg (27.0-31.0); Mean Corpuscular Volume 99.5 fL (78.0-98.0); Mean Platelet Volume 7.7 fL (7.4-10.4); Platelet Count 260 thou/uL (130-400); RBC Distribution Width 12.5 % (11.5-14.5); Red Blood Cell (RBC) Count 2.98 mill/uL (4.70-6.10); White Blood Cell (WBC) Count 13.9 thou/uL (4.8-10.8)
[2018-11-26] MEDS: Levalbuterol HCl 1.25 MG/0.5 ML NEB NEB SCH ×3 (07:55→18:43)
[2018-11-26] MEDS: Mometasone 200 MCG HFA INHALER INH SCH ×2 (07:57→19:01)
[2018-11-26] MEDS: Sodium Chloride For Inhalation 0.9% 3 ML NEB NEB SCH ×3 (07:57→19:04)
[2018-11-26] MEDS: Diltiazem HCl SR 90 mg Capsule PO SCH ×2 (09:35→21:17)
[2018-11-26] MEDS: Sucralfate 1 GM TAB PO SCH ×3 (09:36→21:18)
[2018-11-26] MEDS: Saccharomyces boulardii 250 MG CAP PO SCH (09:36)
[2018-11-26] MEDS: Fluticasone Propionate Nasal Spray 16 gm Bottle NASAL SCH (09:36)
[2018-11-26] MEDS: Finasteride 5 MG TAB PO SCH (09:36)
[2018-11-26] MEDS: guaiFENesin ER 600 MG TAB PO SCH ×2 (09:36→21:17)
--- NOTE | 2018-11-26 11:43 | CT ---
CT CHEST WITHOUT CONTRAST: Date: 11/26/18 Multiple axial tomograms obtained through chest without IV enhancement. INDICATION: Follow-up infiltrate and effusion. Comparison made to CT chest dated 11/18/18. FINDINGS: Chronic lung changes are again noted with emphysematous change. Prior exam showed confluent infiltrate in the right middle and right lower lobes, and in the left upp er lobe, prominent in the region of the lingula. On today's exam, the confluent opacity previously seen in the right middle and right lower lobe has i mproved; however, there is now diffuse ground-glass opacity in right middle and right lower lobes wit h ground-glass opacity now also seen in inferior aspect of the right upper lobe. Diffuse ground-glass opacity is now seen in the left upper and lower lobe. The confluent opacity seen in the lingula on the prior exam is no longer present. Tiny effusions and bibasilar atelectasis. IMPRESSION: The confluent alveolar opacity seen previously in the right middle and right lower lobe have improved . Confluent opacities in the left upper lobe/lingula have also improved. There is now diffuse ground- glass opacity seen throughout both lungs as described above. This indicates alveolitis, possibly resi dual infiltrate or early alveolar edema. No evidence of confluent or consolidated alveolar process. POS: TPC
--- NOTE | 2018-11-26 15:40 | PDOC.PN ---
- Subjective Encounter Start Date: 11/26/18 Encounter Start Time: 09:30 Patient seen and examined for Resp failure. SOB improving. No fever/chills. No new complaints. No overnight events - Objective Resuscitation Status - Order Detail: 11/18/18 16:40 Resuscitation Status Routine Resuscitation Status: FULL: Full Resuscitation MAR Reviewed: Yes Vital Signs & Weight: Vital Signs (12 hours) Temp Pulse Pulse Resp BP BP Pulse Ox 11/26/18 14:28 66 20 91 L 11/26/18 13:54 63 122/59 L 11/26/18 12:11 97.9 F 70 20 112/78 96 11/26/18 08:34 98.3 F 71 18 124/66 93 L 11/26/18 08:25 96 11/26/18 07:55 61 20 11/26/18 06:30 61 20 Pulse Ox Pulse Ox Pulse Ox 11/26/18 14:28 11/26/18 13:54 99 88 L 98 11/26/18 12:11 11/26/18 08:34 11/26/18 08:25 11/26/18 07:55 11/26/18 06:30 Weight Weight 184 lb 6.4 oz I&O: 11/25/18 11/26/18 11/27/18 06:59 06:59 06:59 Intake Total 1530 1470 Output Total 1652 650 Balance -122 820 Result Diagrams: 11/26/18 04:54 11/25/18 05:17 Additional Labs: Accuchecks 11/26/18 11:13 POC Glucose 190 H Radiology Reviewed by me: Yes (CT chest - reviewed) EKG Reviewed by me: Yes (Tele SR) Phys Exam - Physical Examination Constitutional: NAD Respiratory: no wheezing B/L rhonchi Cardiovascular: RRR, no rub Gastrointestinal: soft, non-tender, positive bowel sounds Musculoskeletal: no edema Neurological: moves all 4 limbs Dx/Plan - Plan DVT proph w/SCDs IMPRESSION: Acute on chronic hypoxic Resp failure Sepsis with acute organ dysfunction due to B/L Pneumonia ? Fungal New onset Afib - in SR, Transient AV block RLE DVT - started on anticoag COPD/?Pulmonary fibrosis Alzheimer's dementia CKD 3 Former smoker AJ on CPAP Swallow dysfunction - on modified diet Hypokalemia/Hypomagnesemia Epistaxis/Hemoptysis - no new episode h/o RA Metabolic acidosis/Lactic acidosis - resolved Chronic Anemia PLAN: Cont IV Micafungin/Levaquin/Zosyn Resume Eliquis Wean O2/Nebs/CPAP HS Cont Cardizem and other meds as below Replace Potassium Review of Systems - Review of Systems Respiratory: negative: Cough, Dry, Shortness of Breath, Hemoptysis, SOB with Excertion, Pleuritic Pain, Sputum, Wheezing Cardiovascular: negative: chest pain, palpitations, orthopnea, paroxysmal nocturnal dyspnea, edema, light headedness, other - Medications/Allergies Allergies/Adverse Reactions: Allergies Allergy/AdvReac Type Severity Reaction Status Date / Time azithromycin [From Zithromax] Allergy Verified 11/18/18 12:31 Medications: Current Medications Acetaminophen (Tylenol) 650 mg PO Q4H PRN PRN Reason: Headache/Fever or Pain Last Admin: 11/22/18 10:52 Dose: 650 mg Hydrocodone Bitart/Acetaminophen ([place] 5/325) 1 tab PO Q4H PRN PRN Reason: Moderate Pain (4-6) Albuterol/Ipratropium (Duoneb) 3 ml NEB [id number] PRN PRN Reason: SOB &/or Wheezing Last Admin: 11/22/18 13:28 Dose: 3 ml Apixaban (Eliquis) 5 mg PO BID [facility] Last Admin: 11/24/18 09:16 Dose: 5 mg Atorvastatin Calcium (Lipitor) 10 mg PO HS [facility] Last Admin: 11/25/18 21:10 Dose: 10 mg Bethanechol Chloride (Urecholine) 25 mg PO DAILY [facility] Last Admin: 11/26/18 09:52 Dose: 25 mg Diltiazem HCl (Cardizem Sr) 90 mg PO BID [facility] Last Admin: 11/26/18 09:35 Dose: 90 mg Famotidine (Pepcid) 20 mg PO HS [facility] Last Admin: 11/25/18 21:09 Dose: 20 mg Finasteride (Proscar) 5 mg PO DAILY [facility] Last Admin: 11/26/18 09:36 Dose: 5 mg Fluticasone Propionate (Flonase Nasal [place]) 0 gm NASAL DAILY [facility] Last Admin: 11/26/18 09:36 Dose: 1 spr Guaifenesin (Mucinex) 600 mg PO Q12HR [facility] Last Admin: 11/26/18 09:36 Dose: 600 mg Piperacillin Sod/Tazobactam (Sod 3.375 gm/ Sodium Chloride) 100 mls @ 200 mls/ hr IVPB Q6HR [facility] Last Admin: 11/26/18 12:03 Dose: 100 mls Levofloxacin 750 mg/ Device 150 mls @ 100 mls/hr IVPB Q24HR [facility] Last Admin: 11/26/18 04:52 Dose: 150 mls Micafungin Sodium 100 mg/ (Sodium Chloride) 100 mls @ 100 mls/hr IVPB Q24HR [facility] Stop: 11/28/18 17:59 Last Admin: 11/25/18 17:25 Dose: 100 mls Levalbuterol HCl (Xopenex Conc) 1.25 mg NEB [id number] [facility] Last Admin: 11/26/18 14:28 Dose: 1.25 mg Memantine (Namenda) 10 mg PO BID [facility] Last Admin: 11/26/18 09:35 Dose: 10 mg Metaxalone (Skelaxin) 800 mg PO TID PRN PRN Reason: Muscle Spasm Methylprednisolone Sodium Succinate (Solu-Medrol) 40 mg IVP Q6HR [facility] Last Admin: 11/26/18 12:01 Dose: 40 mg Mometasone Furoate (Asmanex Hfa 200 Mcg) 2 puff INH BID-RT [facility] Last Admin: 11/26/18 07:57 Dose: 2 puff Montelukast Sodium (Singulair) 10 mg PO QPM [facility] Last Admin: 11/25/18 21:07 Dose: 10 mg Ondansetron HCl (Zofran) 4 mg IVP Q6H PRN PRN Reason: Nausea/Vomiting Ondansetron HCl (Zofran Odt) 4 mg PO Q6H PRN PRN Reason: Nausea/Vomiting Pantoprazole Sodium (Protonix) 40 mg PO BID [facility] Last Admin: 11/26/18 09:36 Dose: 40 mg Potassium Chloride (Klor-Con 10) 10 meq PO TID-[facility] Stop: 11/27/18 08:01 Saccharomyces Boulardii (Florastor) 250 mg PO DAILY [facility] Last Admin: 11/26/18 09:36 Dose: 250 mg Sertraline HCl (Zoloft) 25 mg PO DAILY [facility] Last Admin: 11/26/18 09:36 Dose: 25 mg Sodium Chloride (Flush - Normal Saline) 10 ml IVF Q12HR [facility] Last Admin: 11/26/18 09:37 Dose: 10 ml Sodium Chloride (Flush - Normal Saline) 10 ml IVF PRN PRN PRN Reason: Saline Flush Sodium Chloride ([place] Nasal [place] 0.65%) 0 ml EA NARE PRN PRN PRN Reason: Nasal Dryness Sodium Chloride (Ns For Inhalation) 3 ml NEB [id number] [facility] Last Admin: 11/26/18 14:29 Dose: 3 ml Sucralfate (Carafate) 1 gm PO TID [facility] Last Admin: 11/26/18 09:36 Dose: 1 gm Temazepam (Restoril) 30 mg PO HSPRN PRN PRN Reason: Insomnia Last Admin: 11/25/18 21:08 Dose: 30 mg
[2018-11-26] MEDS ORDERED: Mag-Al 1200 mg/1200 mg/30 ML UDCUP PO SCH (16:30)
--- NOTE | 2018-11-26 17:17 | PRG ---
DATE OF SERVICE: 11/26/2018 SERVICE: Pulmonary Medicine. INTERVAL HISTORY: The patient has had a profound improvement in symptoms overnight. The actually sees this as well. He denies any cough, sputum production, fevers, or chills. Otherwise, there has been no interval change to his condition. PHYSICAL EXAMINATION: VITAL SIGNS: Afebrile, pulse 70, blood pressure 122/59, respirations 20, saturation 96% on high-flow nasal cannula, which has been weaned down to 37%. HEENT: Normocephalic and atraumatic. Sclerae are white. Conjunctivae are pink. Oral mucosa is moist without lesions. LUNGS: Decent air entry. There is no prolonged expiratory phase or wheezing. Crackles are evident. HEART: Normal rate. Regular. ABDOMEN: Soft, nontender, and nondistended. Bowel sounds are positive. MUSCULOSKELETAL: No cyanosis or clubbing. There is no pitting in the bilateral lower extremities. NEUROLOGIC: Grossly nonfocal. LABORATORY DATA: WBC 13.9, hemoglobin 9.8, platelets 260,000. Neutrophil count is 83% on top of 6% bands. Lymphocyte count is rebounding. Potassium 3.3, creatinine downtrending to 1.68, BUN 53. Magnesium 1.8, phosphorus 5.0. Clostridium difficile antigen and toxin, respiratory virus panel, and blood cultures x2 are unremarkable. IMAGING DATA: CT of the chest demonstrates profound improvement in the consolidating changes throughout the right middle lobe and left mid lung zone as well as lower lobes. There is now crazy paving, interstitial fullness as well as ground-glass opacifications throughout the same regions. The right upper lobe is relatively spared. These findings, I feel, are more consistent with interstitial lung disease than what we had previously. ASSESSMENT: 1. Acute on chronic hypoxic respiratory failure, improving. 2. Healthcare-associated pneumonia, status post a complete course of antibiotics. 3. Squamous cell carcinoma of the lung, status post right lower lobectomy. 4. Rheumatoid arthritis associated interstitial lung disease with acute exacerbation (I believe this to be the active process and am less suspicious of infection) . 5. Chronic obstructive pulmonary disease with acute exacerbation, resolved. DISCUSSION AND PLAN: The patient has really improved with steroids. A complete course of antibiotics for bacterial pathogens has been finished and can be discontinued today. We will continue the empiric antifungal medications for a total duration of 5 days, though this is not likely to be the issue. If we can get him off high-flow nasal cannula, we can consider transitioning him home on a prednisone taper. His primary emergency medical tech, Katty Reina MD will need to be carbon copied on the discharge summary. Potassium will be replaced today. I will continue to follow. Job ID: [id number] MTDD
[2018-11-26] MEDS: Micafungin 100 MG in Sodium Chloride 0.9% 100 ML IVPB SCH (17:21)
[2018-11-26] MEDS: Potassium Chloride 10 MEQ TAB PO SCH (17:22)
[2018-11-26] MEDS: Calcium Carbonate 500 MG ChewTAB PO PRN ×2 (17:24→21:18)
[2018-11-26] MEDS ORDERED: Mag-Al 1200 mg/1200 mg/30 ML UDCUP PO PRN (21:00)
[2018-11-26] MEDS: Atorvastatin Calcium 10 MG TAB PO SCH (21:17)
[2018-11-26] MEDS: Apixaban 5 MG TAB PO SCH (21:17)
[2018-11-26] MEDS: Famotidine 20 MG TAB PO SCH (21:17)
[2018-11-26] MEDS: Temazepam 15 MG CAP PO PRN (21:18)
[2018-11-26] MEDS: Montelukast Sodium 10 mg Tablet PO SCH (21:18)
[2018-11-27] MEDS: methylPREDNISolone Sod Succ 40 MG VIAL IVP SCH ×4 (00:14→17:43)
[2018-11-27] MEDS: Sodium Chloride For Inhalation 0.9% 3 ML NEB NEB SCH ×3 (00:20→12:36)
[2018-11-27] MEDS: Levalbuterol HCl 1.25 MG/0.5 ML NEB NEB SCH ×3 (00:21→12:35)
[2018-11-27 06:21] LABS: #Basophils 0.1 thou/uL (0.0-0.2); #Lymphocytes 0.9 thou/uL (1.20-3.40); #Monocytes 0.3 thou/uL (0.11-0.59); %Basophils 0.6 % (0.0-1.0); %Eosinophils 0.1 % (0.0-10.0); %Lymphocytes 6.1 % (21.0-51.0); %Monocytes 1.8 % (0.0-10.0); %Neutrophils 91.4 % (42.0-75.0); Hemoglobin 9.6 g/dL (14.0-18.0); Mean Corpuscular HGB CONC 32.9 g/dL (32.0-36.0); Mean Corpuscular Hemoglobin 32.8 pg (27.0-31.0); Mean Corpuscular Volume 99.5 fL (78.0-98.0); Mean Platelet Volume 7.6 fL (7.4-10.4); Platelet Count 270 thou/uL (130-400); RBC Distribution Width 12.4 % (11.5-14.5); Red Blood Cell (RBC) Count 2.91 mill/uL (4.70-6.10); White Blood Cell (WBC) Count 14.2 thou/uL (4.8-10.8)
[2018-11-27] MEDS: Calcium Carbonate 500 MG ChewTAB PO PRN (06:24)
[2018-11-27 06:39] LABS: Anion Gap 13 mmol/L (10-20); BUN (Urea Nitrogen) 53 mg/dL (8.4-25.7); Calc. Creatinine Clearance 44 mL/min (70-130); Calcium 8.2 mg/dL (7.8-10.44); Carbon Dioxide 24 mmol/L (23-31); Chloride 104 mmol/L (98-107); Estimated GFR-MDRD 44; Glucose 137 mg/dL (83-110); Magnesium 2.5 mg/dL (1.6-2.6); Sodium 138 mmol/L (136-145)
[2018-11-27] MEDS: Mometasone 200 MCG HFA INHALER INH SCH (06:52)
[2018-11-27] MEDS: Diltiazem HCl SR 90 mg Capsule PO SCH (08:40)
[2018-11-27] MEDS: Sucralfate 1 GM TAB PO SCH ×2 (08:40→15:46)
[2018-11-27] MEDS: guaiFENesin ER 600 MG TAB PO SCH (08:41)
[2018-11-27] MEDS: Finasteride 5 MG TAB PO SCH (08:41)
[2018-11-27] MEDS: Fluticasone Propionate Nasal Spray 16 gm Bottle NASAL SCH (08:41)
[2018-11-27] MEDS: Potassium Chloride 10 MEQ TAB PO SCH (08:41)
[2018-11-27] MEDS: Apixaban 5 MG TAB PO SCH (08:41)
[2018-11-27] MEDS: Saccharomyces boulardii 250 MG CAP PO SCH (08:41)
[2018-11-27 14:42] VITALS: TEMP 98.3
[2018-11-27 15:12] LABS: Cytoplasmic (C-ANCA) <1:20 titer (Neg:<1:20); Myeloperoxidase AutoAbs <9.0 U/mL (0.0-9.0); Perinuclear (P-ANCA) <1:20 titer (Neg:<1:20); Proteinase-3 AutoAbs Less than 3.5 U/mL (0.0-3.5)
[2018-11-27] MEDS: Micafungin 100 MG in Sodium Chloride 0.9% 100 ML IVPB SCH (17:42)
[2018-11-27 20:14] VITALS: BP 116/58
--- NOTE | 2018-11-28 09:35 | DIS ---
DATE OF ADMISSION: 11/18/2018 DATE OF DISCHARGE: 11/27/2018 DISCHARGE DISPOSITION: To [facility] in [facility]. The patient was seen and examined on the day of discharge. Denies any new complaints. Shortness of breath has significantly improved. DISCHARGE MEDICATIONS: 1. Lipitor 10 mg at bedtime. 2. Bethanechol 25 mg daily. 3. Finasteride 5 mg daily. 4. Flovent Diskus 100 mcg b.i.d. 5. Lansoprazole 30 b.i.d. 6. Xopenex 1.25 every 4 hourly as needed. 7. Linzess 145 mcg daily. 8. Namenda 10 mg b.i.d. 9. Metaxalone 800 mg t.i.d. 10. Ramipril 5 mg daily. 11. Ranitidine 300 mg at bedtime. 12. Zoloft 25 mg daily. 13. Sucralfate 1 g t.i.d. 14. Temazepam 15 mg at bedtime. 15. Nasacort Allergy inhalation daily. 16. Anoro Ellipta daily. 17. Mucinex 600 mg b.i.d. 18. Eliquis 5 mg b.i.d. 19. Tums as needed. 20. Cardizem sustained release 90 mg b.i.d. 21. Fluconazole 100 mg daily for next 5 days. 22. Potassium chloride 20 mEq b.i.d. for next 2 days. 23. Prednisone taper over 2 weeks. 24. The patient was advised to resume 10 mg prednisone after the taper. 25. Florastor 250 mg daily. 26. [place] nasal spray 3 times daily scheduled. INPATIENT FISH BAILER: Pulmonary/Critical Care, Dr. Moses. BRIEF HOSPITAL COURSE: The patient is an 83-year-old male with chronic respiratory failure, on home oxygen, squamous cell carcinoma of the lung, status post right lower lobectomy, rheumatoid arthritis, and COPD, who lives in [place], presented to the hospital with worsening shortness of breath. The patient was visiting [employer]. Please refer to the history and physical for further details. The patient was admitted to the hospital with a diagnosis of acute hypoxic respiratory failure secondary to healthcare-associated pneumonia. He was started on broad-spectrum antibiotics including vancomycin, Zosyn, and Levaquin. He was evaluated by Pulmonary, Dr. Moses. He had slow improvement. Later on due to lack of improvement, he was started on IV steroids and IV micafungin. He also required high-flow oxygen. Home CPAP was continued on and off. Echocardiogram showed ejection fraction 50% to 55% with mild mitral regurgitation and mild tricuspid regurgitation. The repeat CT scan yesterday showed significant improvement compared to the CT scan on the day of admission. Compact disc of the CT scan was provided and was included in the discharge packet. The patient was also diagnosed with partially occlusive thrombus in the right popliteal vein. He has been started on Eliquis. He was advised to continue prednisone taper over next 3 to 4 weeks. He will resume 10 mg prednisone after the taper. FINAL DIAGNOSES: 1. Acute on chronic hypoxic respiratory failure. 2. Sepsis with acute organ dysfunction due to bilateral pneumonia, questionable fungal versus gram-negative. 3. Right lower extremity deep venous thrombosis, started on anticoagulation. 4. Transient atrial fibrillation in sinus rhythm. Cardizem dose has been reduced due to transient atrioventricular block. 5. Chronic obstructive pulmonary disease. 6. Suspected rheumatoid arthritis associated with interstitial lung disease with acute exacerbation. 7. Swallow dysfunction. 8. Obstructive sleep apnea, on CPAP. 9. Former smoker. 10. Chronic kidney disease, stage 3. 11. Alzheimer dementia. 12. Hypokalemia. 13. Hypomagnesemia. 14. Transient epistaxis, resolved. 15. History of rheumatoid arthritis. 16. Metabolic acidosis/lactic acidosis. 17. Chronic anemia. 18. Physical deconditioning. TIME SPENT: Total time coordinating the discharge of this patient was 39 minutes. Job ID: [id number]
[2018-11-28 16:24] LABS: ANA Symphony (Qualitative) Negative (Negative); ANA Symphony (Quantitative) Less than 0.1 Ratio (< 0.7 Negative); CCP IgG Antibody 0.4 EliAU/mL (<7 Negative); EliA RAS New Method **** NEW METHOD ****; Rheumatoid Factor IgA Antibody 1.1 IU/mL (<14 Negative); Rheumatoid Factor IgM Antibody 8.5 IU/mL (<3.5 Negative); dsDNA IgG Antibody Less than 0.5 IU/mL (<10 Negative)
== END 2018-11-27 18:25 | DRG 871 ==
LOC: ERS 01:58 → 2SE 05:52 → 2NO 20:10
PROVIDERS: ADMIT Internal Medicine; ATTEND Internal Medicine
PROC: 5A09357 Assistance with Respiratory Ventilation, Less than 24 Consecutive Hours, Continuous Positive Airway Pressure (ICD-10-PCS; principal; 2018-11-18)
DX: A41.9 Sepsis, unspecified organism (principal); J96.21 Acute and chronic respiratory failure with hypoxia; J15.6 Pneumonia due to other Gram-negative bacteria; N17.9 Acute kidney failure, unspecified; J44.0 Chronic obstructive pulmonary disease with (acute) lower respiratory infection; J44.1 Chronic obstructive pulmonary disease with (acute) exacerbation; I82.431 Acute embolism and thrombosis of right popliteal vein; E87.2 Acidosis; B48.8 Other specified mycoses; R65.20 Severe sepsis without septic shock; I12.9 Hypertensive chronic kidney disease with stage 1 through stage 4 chronic kidney disease, or unspecified chronic kidney disease; N18.3 Chronic kidney disease, stage 3 (moderate); E87.6 Hypokalemia; E83.42 Hypomagnesemia; R19.7 Diarrhea, unspecified; I48.91 Unspecified atrial fibrillation; D63.1 Anemia in chronic kidney disease; G30.9 Alzheimer's disease, unspecified; F02.80 Dementia in other diseases classified elsewhere, unspecified severity, without behavioral disturbance, psychotic disturbance, mood disturbance, and anxiety; M06.9 Rheumatoid arthritis, unspecified; R04.0 Epistaxis; G47.33 Obstructive sleep apnea (adult) (pediatric); R13.10 Dysphagia, unspecified; Z85.118 Personal history of other malignant neoplasm of bronchus and lung; Z90.2 Acquired absence of lung [part of]; Z88.1 Allergy status to other antibiotic agents; Z87.891 Personal history of nicotine dependence
CPT/HCPCS: 36415; 36416; 71045; 71250; 71275; 80048; 80053; 80202; 82550; 83520; 83605; 83690; 83735; 83880; 84100; 84443; 84484; 85007; 85014; 85018; 85025; 85027; 85049; 85379; 86038; 86200; 86225; 86256; 87040; 87324; 87449; 87633; 87798; 93005; 93010; 93306; 94640; 94667; 94668; 96361; 96365; 96368; 96375; J1650; J1940; J1956; J2248; J2405; J2543; J2920; J3370; J3475; J3490; J7512; J7612; J7620; Q0163; Q9966